=== PATIENT | female | born 1950 | race Caucasian/White ===

== ENCOUNTER 2023-08-31 03:37 | Inpatient (IN) | payer MEDICARE, OTHER, SELFPAY ==
[2023-08-31] VITALS (12 sets, daily range): BP systolic 107–158; BP diastolic 51–81; PULSE 86–111; RESP 14–22; TEMP 36.4–37.6; O2SAT 95–96; BMI 35.8
--- NOTE | ~2023-08-31 | CT_ITS ---
EXAMINATION: CT brain wo con DATE: 09/07/2023 18:07 INDICATION: Intracranial hemorrhage. TECHNIQUE: Computed tomography (CT) of the head was performed without intravenous contrast. The mA wa s adjusted according to patient size. Iterative reconstruction technique was employed. The dose-lengt h product was 681.00 mGy-cm. COMPARISON: None FINDINGS: There is no intracranial hemorrhage, acute infarction, or abnormal intracranial mass lesion . The ventricles are normal in size. The orbits are normal. The paranasal sinuses are clear. There ar e trace bilateral mastoid effusions. IMPRESSION: 1. Normal brain. Reviewed, dictated and finalized at location E. IMPRESSION: 1. Normal brain.
--- NOTE | ~2023-08-31 | CT_ITS ---
CT of the Abdomen and Pelvis: Indication: Abdominal distention, abnormal liver enzymes Technique: 2.5 mm axial scans were obtained through the abdomen and pelvis following intravenous adm inistration of 100 cc of Omnipaque 350. Dose reduction technique was used on this scan by utilizing a utomated exposure control and iterative reconstruction technique. The dose-length product (DLP) was 1 293.69 mGy-cm. Findings: Scans through the lung bases demonstrate small left pleural effusion. Liver is small and nodular in contour, compatible with cirrhotic change. No focal mass or biliary dil atation evident. The spleen, pancreas, gallbladder, adrenals and kidneys are within normal limits. N o evidence of aortic aneurysm. No lymphadenopathy. No bowel obstruction or bowel wall thickening. There is no evidence to suggest acute appendicitis. Images through the pelvis were performed. Urinary bladder unremarkable. No adnexal mass seen. Large a mount of abdominopelvic ascites present. Impression: Cirrhosis of the liver with associated large amount of abdominopelvic ascites. Small left pleural effusion. Reviewed, dictated and finalized at location M. Impression: Cirrhosis of the liver with associated large amount of abdominopelvic ascites. Small left pleural effusion.
--- NOTE | ~2023-08-31 | US_ITS ---
EXAMINATION: US venous doppler LE RT DATE: 09/05/2023 15:00 INDICATION: Right lower limb pain, swelling and mass TECHNIQUE: Grayscale ultrasound images without and with compression and Doppler ultrasound images of the right lower extremity veins were obtained. COMPARISON: None. FINDINGS: The right common femoral vein and proximal to mid femoral vein are partially compressible indicating nonocclusive thrombus. The visualized portions of right profunda (deep) femoral vein, distal femoral vein, popliteal vein, posterior tibial veins, peroneal veins, gastrocnemius vein and greater saphenou s vein outflow are patent. At the medial right thigh on longitudinal imaging there is a small triangu lar region of anechoic likely fluid at the caudal aspect of a more ovoid hypoechoic region. Appearanc e suggests possible small hematoma at a distal muscle or tendon tear with edema in the proximal retra cted portion of the muscle. IMPRESSION: 1. Nonocclusive deep venous thrombosis in the right common femoral vein and proximal to mid femoral vein. 2. Mixed hypoechoic and anechoic lesion at the medial right thigh with appearance suggesting a distal muscle or tendon tear with proximal retraction and small hematoma at the tear defect. Evaluation is relatively limited with ultrasound and could consider MRI for further evaluation as clinically indica kristopher. Reviewed, dictated and finalized at location B. IMPRESSION: 1. Nonocclusive deep venous thrombosis in the right common femoral vein and pr oximal to mid femoral vein. 2. Mixed hypoechoic and anechoic lesion at the medial right thigh with appearan ce suggesting a distal muscle or tendon tear with proximal retraction and small hematoma at the tear defect. Evaluation is relatively limited with ultrasound and could consider MRI for further evaluation as clinically indicated.
--- NOTE | ~2023-08-31 | CT_ITS ---
EXAMINATION: CT chest abdomen pelvis wo con DATE: 09/07/2023 18:07 INDICATION: Anemia. TECHNIQUE: Computed tomography (CT) of the chest, abdomen, and pelvis was performed without intraveno us contrast. Automated exposure control and iterative reconstruction technique were employed. The dos e-length product was 681.00 mGy-cm. COMPARISON: CT abdomen and pelvis 08/31/2023 FINDINGS: CHEST CT: The lungs demonstrate mild atelectasis. No pleural effusion. The heart size is normal. There are yasir nary artery calcifications. No pericardial effusion. There is mild thoracic spondylosis. ABDOMEN/PELVIS CT: The liver demonstrates surface nodularity, consistent with cirrhosis. The gallbladder, spleen, pancre as, adrenal glands, and right kidney are normal. There is a 7.2 cm cyst in left kidney. There is no u rolithiasis. There is diverticulosis of the colon without evidence of diverticulitis. There are no di lated loops of bowel. The appendix is normal. There are no pathologically enlarged lymph nodes. There is edema of the body wall and intra-abdominal fat. There is a small volume of ascites measuring simp le fluid attenuation. There is asymmetric subcutaneous edema in right thigh. Partially visualizes enl argement of the right hip adductor muscles. There is severe lumbar spondylosis. IMPRESSION: 1. New partially visualized enlargement of the right hip adductor muscles, consistent with hematoma. 2. Cirrhosis of the liver. 3. Small volume of ascites. Reviewed, dictated and finalized at location E. IMPRESSION: 1. New partially visualized enlargement of the right hip adductor muscles, cons istent with hematoma. 2. Cirrhosis of the liver. 3. Small volume of ascites.
--- NOTE | ~2023-08-31 | US_ITS ---
EXAMINATION: US paracentesis abd w/image DATE: 08/31/2023 16:02 INDICATION: Ascites. TECHNIQUE: The procedure and its risks, benefits, and alternatives were discussed with the patient. P otential risks discussed included bleeding and infection. The skin was prepped and draped in sterile fashion. 1% lidocaine was used for local anesthesia. Under ultrasound guidance, a 5 Fr catheter with trochar was advanced into the ascites in the left lower quadrant. Fluid was aspirated. The catheter w as removed, and a dressing was applied. There were no immediate complications. FINDINGS: Ultrasound images demonstrate ascites and the catheter within the fluid. IMPRESSION: 1. Successful ultrasound-guided paracentesis yielding 2900 mL of tomi-colored fluid. Reviewed, dictated and finalized at location A.
[2023-08-31 03:59] LABS: Basophils Percent Auto 0.5 % (0.2-1.2); Eosinophils Absolute Auto 0.2 K/mm3 (0-0.3); Eosinophils Percent Auto 4.4 % (0-4.4); Hematocrit 36.3 % (37.0-47.0); Hemoglobin 12.2 g/dL (12.0-15.0); Immature Platelet Fraction Pct 2.2 % (0.9-11.2); Lymphocytes Absolute Auto 1.98 K/mm3 (0.9-3.2); Lymphocytes Percent Auto 50.8 % (18.3-44.2); Mean Corpuscular HGB Conc 33.6 g/dl (32-36); Mean Corpuscular Volume 107.1 fl (80-100); Mean Platelet Volume 10.1 fl (7.4-10.4); Monocytes Absolute Auto 0.2 K/mm3 (0.1-0.6); Monocytes Percent Auto 4.9 % (2.6-8.5); Neutrophils Absolute Auto 1.5 K/mm3 (1.3-6.7); Neutrophils Percent Auto 39.4 % (45.5-73.1); Platelet Count Result 73 k/mm3 (150-375); Red Blood Count 3.39 M/mm3 (4.2-5.4); Red Cell Distribution Width 15.1 % (11.5-14.5); White Blood Count 3.9 K/mm3 (4.5-10.0)
[2023-08-31 04:07] LABS: Alanine Aminotransferase 32 U/L (6-35); Albumin Level 2.8 g/dL (3.5-5.1); Alkaline Phosphatase 332 U/L (38-126); Anion Gap 6 mmol/L (4-12); Aspartate Amino Transferase 94 U/L (14-36); Bilirubin,Total 4.9 mg/dL (0.2-1.3); Blood Urea Nitrogen 11 mg/dL (7-17); Calcium 8.4 mg/dL (8.4-10.2); Carbon Dioxide 23 mmol/L (22-30); Chloride 111 mmol/L (98-107); Estimated CRCL calculation 91 ml/min; Estimated Glomerular Filt Rate > 60; Glucose 93 mg/dL (65-110); Lipase 173 U/L (23-300); Potassium 3.8 mmol/L (3.4-5.0); Sodium 140 mmol/L (137-145)
[2023-08-31 04:11] LABS: Ovalocytes 1+; Platelet Estimate Decreased (Adequate); Schistocytes None Seen
--- NOTE | 2023-08-31 05:47 | ED.GENADULT ---
HPI - General Adult General Chief complaint: Abdominal Pain Stated complaint: abdominal pain, rib cage pain, N/V Time Seen by Provider: 08/31/23 04:50 History of Present Illness HPI narrative: this is a 73-year-old female presenting to the ED with chief complaint of abdominal discomfort. Patient says since late July she felt like she has been having abdominal bloating,, nausea vomiting lower extremity edema and dyspnea on exertion. Her notes that she has appeared more yellow. patient denies fevers chills chest pain or urinary symptoms. No history of liver disease, heavy alcohol use or drug use. Related Data Allergies Allergy/AdvReac Type Severity Reaction Status Date / Time No Known Allergies Allergy Verified 08/31/23 03:54 [facility] Family History Family History Mother Family history of congenital heart disease, Onset Age: 81 Father Cerebrovascular accident, Onset Age: 80 Social History Social History Smoking status: Former smoker Smoking end date: 04/25/87 Alcohol intake: never Exam Narrative: APPEARANCE: No apparent distress. Jaundiced Head: atraumatic. EYES: EOMI, NOSE: Atraumatic NECK: Trachea midline RESPIRATORY: No increased rate of breathing, bibasilar rales CARDIOVASCULAR: RRR, +2 pitting edema lower extremities ABDOMINAL: abdomen is distended, mild diffuse tenderness, no guarding no rebound no CVA tenderness MUSCULOSKELETAl: No obvious deformities NEURO: Alert. Moving 4/4 extremities SKIN:: Warm, dry. Normal color PSYCHIATRIC: Normal affect Course Vital Signs Vital signs: Vital Signs Temperature 98.1 F 08/31/23 03:42 Pulse Rate 111 H 08/31/23 03:42 Respiratory Rate 19 08/31/23 03:42 Blood Pressure 158/67 H 08/31/23 03:42 Pulse Oximetry 95 08/31/23 03:42 Oxygen Delivery Room Air 08/31/23 03:42 Temperature 98.1 F 08/31/23 03:42 Pulse Rate 111 H 08/31/23 03:42 Respiratory Rate 19 08/31/23 03:42 Blood Pressure 158/67 H 08/31/23 03:42 Pulse Oximetry 95 08/31/23 03:42 Oxygen Delivery Room Air 08/31/23 03:42 Medical Decision Making [facility] Narrative Medical decision making narrative: -Course: This is a 73-year-old female presenting with 2 months of abdominal distension. CT showed liver cirrhosis with significant ascites. Case was discussed with Dr. Hayden from [facility] patient will be admitted the hospital for further workup. -DDX includes but is not limited to: liver failure, neoplasm cholecystitis -Independent interpretation of studies: Labs reviewed. Significant for elevated bilirubin of 4.9, AST 94, ALT 32, alk phos is 332 CT showed liver cirrhosis with significant diabetes. -Discussion of Management/Consultants: Dr. Hayden - Thaddeus [facility]- Hospitalist -Shared decision making / Disposition:admitted Vital Signs Vital Signs: Vital Signs Temperature 98.1 F 08/31/23 03:42 Pulse Rate 111 H 08/31/23 03:42 Respiratory Rate 19 08/31/23 03:42 Blood Pressure 158/67 H 08/31/23 03:42 Pulse Oximetry 95 08/31/23 03:42 Oxygen Delivery Room Air 08/31/23 03:42 Temperature 98.1 F 08/31/23 03:42 Pulse Rate 111 H 08/31/23 03:42 Respiratory Rate 19 08/31/23 03:42 Blood Pressure 158/67 H 08/31/23 03:42 Pulse Oximetry 95 08/31/23 03:42 Oxygen Delivery Room Air 08/31/23 03:42 Lab Data 08/31/23 03:52 08/31/23 03:52 Labs: Lab Results 08/31/23 Range/Units 03:52 WBC 3.9 L (4.5-10.0) K/mm3 RBC 3.39 L (4.2-5.4) M/mm3 Hgb 12.2 (12.0-15.0) g/dL Hct 36.3 L (37.0-47.0) % MCV 107.1 H (80-100) fl MCH 36.0 H (26-34) pg MCHC 33.6 (32-36) g/dl RDW 15.1 H (11.5-14.5) % Plt Count 73 L (150-375) k/mm3 MPV 10.1 (7.4-10.4) fl Immature Gran % (Auto) 0.0 (0-0.5) % Neut % (Auto) 39.4 L (45.5-73.1) % Lymph % (Auto) 5
[2023-08-31 06:33] LABS: NT Pro B Type Natriuretic Pept 293 pg/mL (19.9-100); Troponin I < 0.012 ng/mL (0.000-0.034)
--- NOTE | 2023-08-31 07:11 | ECG_ITS ---
SEE SCANNED COPY FOR CONFIRMED REPORT MTDD
[2023-08-31 07:30] LABS: Troponin I < 0.012 ng/mL (0.000-0.034)
[2023-08-31 07:41] LABS: INR 3.8
[2023-08-31 07:42] LABS: Partial Thromboplastin Time 66.9 Seconds (22.3-36.8)
[2023-08-31 07:44] LABS: Albumin Level 2.8 g/dL (3.5-5.1)
[2023-08-31 07:59] LABS: Appearance Urine Clear (Clear); Bacteria Urine None Seen /hpf; Bilirubin Urine 1+ (Negative); Blood Urine 3+ (Negative); Color Urine Dark Yellow (Yellow); Glucose Urine UA Negative (Negative); Ketones Urine Negative (Negative); Leukocyte Esterase Ur Negative LEU/UL (Negative); Need Manual Microscopic Reviewed; Nitrate Urine Negative (Negative); Non Pathogenic Casts 0-2; Protein Urine Trace mg/dL (Negative); RBC Urine 21-50 /hpf (0-2); Specific Grav Ur 1.095 (1.001-1.035); Squamous Epithelial Cell Urine Occasional /hpf (Few); WBC Urine 0-5 /hpf (0-3); pH Urine 5.5 (5.0-9.0)
[2023-08-31 08:01] LABS: Add Urine Microscopic? YES
--- NOTE | 2023-08-31 08:55 | ADMGEN ---
This patient, Magaly Cedeno, was admitted to [facility] Surg Room 321-02. Patient/family oriented to hospital policies and general routines including ID bracelet, bed and alarms, visiting hours, pain management, procedures, bathroom and other care routines, personal items, smoking policy, room service/diet, and visiting hours. Information on how to activate the Rapid Response Team has been discussed. Patient/Family are encouraged to report perceived risks to care and to ask questions if they do not understand what they are told or what they should do.
[2023-08-31 11:36] LABS: Iron 125 ug/dL (37-170)
[2023-08-31 11:45] LABS: Percent Iron Saturation 65 % (20-50)
[2023-08-31 12:11] LABS: Hepatitis B Surface Antigen Negative (Negative)
[2023-08-31 12:17] LABS: HAV RESULT Negative (Negative); Hepatitis B Core IgM Result Negative (Negative)
--- NOTE | 2023-08-31 12:18 | PM.IMHP ---
H&P: HPI History of Present Illness Date/Time: 08/31/23 12:18 Chief Complaint: abdominal pain Narrative: Patient is a 73-year-old female with no PMH admitted for abdominal discomfort. Patient says since late July she felt like she has been having abdominal bloating, intermittent nausea/vomiting, and newer onset lower extremity edema. She denies noticing her coloration changes. Patient reports she was having trouble urinating and having bowel movements due to the swelling in her abdomen. She tried homeopathic water pill [id number] which did not help. She is a [employer] and does not take any home meds. Denies any other medical history. No history of liver disease, heavy alcohol use or drug use. Review of Systems Review of Systems: All systems reviewed & are unremarkable except as noted in HPI and below PMFSH Family History Family History Mother Family history of congenital heart disease, Onset Age: 81 Father Cerebrovascular accident, Onset Age: 80 Social History Social History Smoking status: Never smoker Alcohol intake: never Substance use: never Do You Feel Safe in your Home?: Yes Lack of Transportation: No Lack of Food: Never True Current Housing: I Do Not Have Housing Concerned About Future Housing: No Difficulty Paying Gas/Electric Bills: No Difficulty Paying for Meds: No Currently Unemployed: No Education: Associate Degree Difficulty w/ Childcare or Family Care: No Spiritual care concerns: No (Evangelical) Meds Home Medications and Allergies Allergies Allergy/AdvReac Type Severity Reaction Status Date / Time No Known Allergies Allergy Verified 08/31/23 03:54 Vital Signs Vital Signs - 24 hr 08/31/23 03:42 08/31/23 07:16 08/31/23 08:22 Temperature 98.1 F 98.7 F 97.9 F Pulse Rate 111 H 102 H 96 Respiratory Rate 19 20 22 H Blood Pressure 158/67 H 138/74 116/60 Pulse Oximetry 95 95 96 Oxygen Delivery Room Air 08/31/23 09:00 08/31/23 09:41 Temperature 97.7 F Pulse Rate 103 H 95 Respiratory Rate 16 Blood Pressure 149/81 H Pulse Oximetry 96 Oxygen Delivery Exam Narrative: GEN: Fair appearing female lying in bed, in no acute distress. Head: atraumatic. EYES: EOMI, PERRLA NECK: supple RESPIRATORY: Lungs slightly diminished at bases, otherwise clear CARDIOVASCULAR: RRR, +2 pitting edema lower extremities ABDOMINAL: abdomen is soft yet distended, non-tender this am, without guarding or rebound MUSCULOSKELETAL: No obvious deformities, normal ROM NEURO: Alert and oriented x4. No focal deficits. SKIN:: Warm, dry. Jaundiced appearance. PSYCHIATRIC: Normal affect, pleasant and cooperative H&P: Results Labs Labs: Short CBC 08/31/23 Range/Units 03:52 WBC 3.9 L (4.5-10.0) K/mm3 Hgb 12.2 (12.0-15.0) g/dL Hct 36.3 L (37.0-47.0) % Plt Count 73 L (150-375) k/mm3 BMP 08/31/23 03:52 Sodium 140 Potassium 3.8 Chloride 111 H Carbon Dioxide 23 BUN 11 Creatinine 0.50 L Glucose 93 Calcium 8.4 Cardiac Enzymes 08/31/23 08/31/23 Range/Units 03:52 07:01 Troponin I < 0.012 < 0.012 (0.000-0.034) ng/mL Liver Function 08/31/23 08/31/23 Range/Units 03:52 07:23 Total Bilirubin 4.9 H (0.2-1.3) mg/dL AST 94 H (14-36) U/L ALT 32 (6-35) U/L Alkaline Phosphatase 332 H (38-126) U/L Albumin 2.8 L 2.8 L (3.5-5.1) g/dL Urine 08/31/23 Range/Units 07:23 Urine Color Dark yellow (Yellow) Urine Appearance Clear (Clear) Urine pH 5.5 (5.0-9.0) Ur Specific [place] 1.095 H (1.001-1.035) Urine Protein Trace (Negative) mg/dL Urine Glucose (UA) Negative (Negative) mg/dL Assessment and Plan Assessment and plan (1) Cirrhosis of liver: Code(s): K74.60 - Unspecified cirrhosis of liver Status
[2023-08-31 12:28] LABS: Hepatitis C Virus Antibody Negative (Negative)
--- NOTE | 2023-08-31 15:05 | PC.NURSE ---
To ultrasound for Paracentesis per wheelchair.
--- NOTE | 2023-08-31 15:47 | PC.NURSE ---
Returned from ultrasound per wheelchair.
--- NOTE | 2023-08-31 16:57 | WPDGICN ---
Assessment and Plan Assessment and plan (1) Decompensated hepatic cirrhosis: Code(s): K72.90 - Hepatic failure, unspecified without coma; K74.60 - Unspecified cirrhosis of liver Status: Acute Assessment and Plan: new diagnosis, here with ascites just removed 2.9L, pending studies noted elevated ferritin (will check HFE gene), also blood work to rule out other chronic liver conditions, denies alcohol use also will need referral to hepatology will need at some point EGD to assess for varices MELD score 21, she is Jehova's witness and liver transplant probably won't be an option because her belief (2) Ascites: Code(s): R18.8 - Other ascites Status: Acute Assessment and Plan: s/p paracentesis, pending result (3) Coagulopathy: Code(s): D68.9 - Coagulation defect, unspecified Status: Acute Assessment and Plan: will give vit K, if still high tomorrow probably FFP (4) Thrombocytopenia: Code(s): D69.6 - Thrombocytopenia, unspecified Status: Acute Assessment and Plan: from liver disease (5) Elevated liver enzymes: Code(s): R74.8 - Abnormal levels of other serum enzymes Status: Acute Assessment and Plan: new diagnosis of cirrhosis pending work up hepatitis negative (6) Abdominal pain: Code(s): R10.9 - Unspecified abdominal pain Status: Acute (7) Nausea: Code(s): R11.0 - Nausea Status: Acute GI Consult Note Consult date/time: 08/31/23 16:57 Reason for consult: new diagnosis of cirrhosis HPI: Magaly Cedeno is a 73 year old female with no chronic medical conditions (she has not seen a doctor at least for 3 years). She came here with 3 weeks of intermittent abdominal discomfort with bloating, nausea/vomiting, and newer onset lower extremity edema.? Also noted increase abdominal girth. She is a [employer] and does not take any home meds. No history of hepatitis, alcohol use. Here found to have decompensated cirrhosis with ascites, bili 4.9, inr 3.8, platelet 70, hgb 12.5, normal renal function. Never had EGD. Denies melena. Review of Systems Constitutional: Constitutional: Denies chills Eyes: Eyes: Denies blurry vision ENT: Reports Normal hearing present Cardiovascular: Cardiovascular: Denies chest pain Respiratory: Respiratory: Denies cough Gastrointestinal: Gastrointestinal: Reports abdominal pain and Reports nausea Genitourinary: Genitourinary: Denies dysuria Musculoskeletal: Musculoskeletal: Denies neck pain Integumentary/Breasts: Skin/Breast: Denies rash Neurologic: Denies Abnormal speech present Psychiatric: Psychiatric: Denies behavioral changes [facility] Past Medical History Medical History (Updated 08/31/23 @ 17:04 by Domingo Martinez MD) Abdominal pain Ascites Coagulopathy Decompensated hepatic cirrhosis Elevated liver enzymes Nausea Thrombocytopenia Family History Family History Mother Family history of congenital heart disease, Onset Age: 81 Father Cerebrovascular accident, Onset Age: 80 Social History Social History Smoking status: Never smoker Alcohol intake: never Substance use: never Do You Feel Safe in your Home?: Yes Lack of Transportation: No Lack of Food: Never True Current Housing: I Do Not Have Housing Concerned About Future Housing: No Difficulty Paying Gas/Electric Bills: No Difficulty Paying for Meds: No Currently Unemployed: No Education: Associate Degree Difficulty w/ Childcare or Family Care: No Spiritual care concerns: No ([employer]) Meds Home Medications and Allergies Allergies Allergy/AdvReac Type Severity Reaction Status Date / Time No Known Allergies Allergy Verified 08/31/23 03:54 Vital Signs Vital Signs - 24 hr 08/31/23 03:42
[2023-08-31 17:56] LABS: Appearance Peritoneal Fluid Cloudy (Clear); Color Peritoneal Fluid Yellow (Colorless); Nucleated Cells Peritoneal Flu 15980 /uL (0-500); Source Peritoneal Fluid Peritoneal Fluid
[2023-08-31 17:57] LABS: Lymphocytes Peritoneal Fluid 3 %; Monocytes Peritoneal Fluid 15 %; Neutrophils Peritoneal Fluid 82 % (0-25)
[2023-09-01] VITALS (10 sets, daily range): BP systolic 111–134; BP diastolic 52–64; PULSE 79–114; RESP 14–18; TEMP 36.8–37.4; O2SAT 92–98
[2023-09-01 07:06] LABS: INR 2.9; Prothrombin Time 32.1 Seconds (11.1-14.7)
[2023-09-01 07:38] LABS: Basophils Percent Auto 0.4 % (0.2-1.2); Eosinophils Absolute Auto 0.1 K/mm3 (0-0.3); Eosinophils Percent Auto 1.2 % (0-4.4); Hematocrit 30.5 % (37.0-47.0); Hemoglobin 10.5 g/dL (12.0-15.0); Immature Granulocyte Absolute 0.03 K/mm3 (0.00-0.031); Immature Granulocyte Percent A 0.4 % (0-0.5); Immature Platelet Fraction Pct 3.3 % (0.9-11.2); Lymphocytes Absolute Auto 2.03 K/mm3 (0.9-3.2); Mean Corpuscular HGB Conc 34.4 g/dl (32-36); Mean Corpuscular Volume 107.4 fl (80-100); Mean Platelet Volume 10.5 fl (7.4-10.4); Monocytes Absolute Auto 1.3 K/mm3 (0.1-0.6); Monocytes Percent Auto 16.6 % (2.6-8.5); Neutrophils Absolute Auto 4.1 K/mm3 (1.3-6.7); Neutrophils Percent Auto 54.4 % (45.5-73.1); Platelet Count Result 60 k/mm3 (150-375); Red Blood Count 2.84 M/mm3 (4.2-5.4); Red Cell Distribution Width 15.3 % (11.5-14.5); White Blood Count 7.5 K/mm3 (4.5-10.0)
[2023-09-01 08:08] LABS: Alanine Aminotransferase 26 U/L (6-35); Albumin Level 2.2 g/dL (3.5-5.1); Alkaline Phosphatase 150 U/L (38-126); Anion Gap 1 mmol/L (4-12); Aspartate Amino Transferase 69 U/L (14-36); Blood Urea Nitrogen 13 mg/dL (7-17); Calcium 8.1 mg/dL (8.4-10.2); Carbon Dioxide 25 mmol/L (22-30); Chloride 107 mmol/L (98-107); Estimated CRCL calculation 100 ml/min; Estimated Glomerular Filt Rate > 60; Glucose 93 mg/dL (65-110); Potassium 3.9 mmol/L (3.4-5.0); Sodium 133 mmol/L (137-145)
[2023-09-01] MEDS: PHYTONADIONE 5 MG TABLET 10 MG PO (08:24)
[2023-09-01 08:29] LABS: Anisocytosis 1+; Macrocytosis 1+ (NORMAL); Ovalocytes 1+; Platelet Estimate Decreased (Adequate); Schistocytes None Seen
[2023-09-01] MEDS: FUROSEMIDE 40 MG TABLET PO (08:37)
[2023-09-01] MEDS: LACTULOSE 20 GM/30 ML UDC PO (08:37)
[2023-09-01] MEDS: PANTOPRAZOLE 40 MG TABLET PO (08:37)
[2023-09-01] MEDS: SPIRONOLACTONE 50 MG TABLET 100 MG PO (08:37)
[2023-09-01] MEDS: cefTRIAXone 2 GM/NS 100 ML 2 GM/100 ML BAG IVPB (10:18)
[2023-09-01] MEDS: ALBUMIN HUMAN 25% 25 GM/100 ML 100 ML IVPB ×3 (11:29→23:52)
--- NOTE | 2023-09-01 15:10 | PM.IMPN ---
Progress Note: A&P Assessment and Plan (1) Cirrhosis of liver: Code(s): K74.60 - Unspecified cirrhosis of liver Status: Acute Assessment and Plan: CTA showed liver is small and nodular in contour, compatible with cirrhotic change. No focal mass or biliary dilatation evident. The spleen, pancreas, gallbladder, adrenals and kidneys are within normal limits. No evidence of aortic aneurysm. No lymphadenopathy. No bowel obstruction or bowel wall thickening. There is no evidence to suggest acute appendicitis. Images through the pelvis were performed. Urinary bladder unremarkable. No adnexal mass seen. Large amount of abdominopelvic ascites present. Cirrhosis of the liver with associated large amount of abdominopelvic ascites. Small left pleural effusion. s/p Paracentesis yesterday with fluids studies ordered PT/PTT elevated Bili increased to 6.0 today AST/ALT 69/26 Alk-phos 332 -->150 Iron studies WNL Hepatic panel negative GI following started on Lasix and spironolactone Subjective Date/time seen: 09/01/23 15:10 Interval history: Patient sitting up in bed this morning. She reports she is feeling better since her paracentesis. Edema in her legs has improved as well. Pleural fluid pending. GI following. Started her on Lasix and spironolactone. Review of Systems Review of Systems: All systems reviewed & are unremarkable except as noted in HPI and below Exam Narrative: GEN: Fair appearing female lying in bed, in no acute distress. Head: atraumatic. EYES: EOMI, PERRLA NECK: supple RESPIRATORY: Lungs slightly diminished at bases, otherwise clear CARDIOVASCULAR: RRR, +2 pitting edema lower extremities ABDOMINAL: abdomen is soft, mildly distended, non-tender, without guarding or rebound MUSCULOSKELETAL: No obvious deformities, normal ROM. Edema improved. NEURO: Alert and oriented x4. No focal deficits. SKIN:: Warm, dry. Jaundiced appearance. PSYCHIATRIC: Normal affect, pleasant and cooperative Objective Data Vital Signs Vital Signs: Vital Signs - 24 hr 08/31/23 16:00 08/31/23 17:47 08/31/23 21:36 Temperature 99.7 F H Pulse Rate 91 88 88 Respiratory Rate 14 Blood Pressure 107/51 L Pulse Oximetry 95 Oxygen Delivery 08/31/23 20:00 08/31/23 23:28 08/31/23 20:00 Temperature 99.4 F Pulse Rate 86 Respiratory Rate Blood Pressure Pulse Oximetry Oxygen Delivery Room Air 09/01/23 00:00 09/01/23 06:00 09/01/23 04:00 Temperature 98.2 F Pulse Rate 82 114 H 79 Respiratory Rate 16 Blood Pressure 111/61 Pulse Oximetry 92 Oxygen Delivery 09/01/23 08:32 09/01/23 08:00 09/01/23 12:00 Temperature Pulse Rate 94 81 Respiratory Rate Blood Pressure 132/61 Pulse Oximetry Oxygen Delivery 09/01/23 14:00 Temperature 98.8 F Pulse Rate 83 Respiratory Rate 18 Blood Pressure 134/64 Pulse Oximetry 98 Oxygen Delivery Intake/Output Intake/Output: Intake & Output 08/29/23 08/30/23 08/31/23 09/01/23 23:59 23:59 23:59 23:59 Intake Total 0 758 Output Total 2900 Balance -2900 758 Meds/Results Medications: Active Medications Generic Name Dose Route Start Last Admin Trade Name Freq PRN Reason Stop Dose Admin Furosemide 40 mg 09/01/23 09:00 09/01/23 08:37 Furosemide 40 Mg Tablet PO 40 mg DAILY [place] Administration Ceftriaxone Sodium 2 gm in 100 mls @ 200 mls/hr 09/01/23 10:00 09/01/23 10:48 Rocephin 2 Gm/Ns 100 Ml IVPB Infused Q24H [place] Infusion Albumin Human 100 mls @ 60 mls/hr 09/01/23 12:00 09/01/23 13:10 Albutein IVPB 09/02/23 07:39 Infused Q6HR [facility] Infusion Pantoprazole Sodium 40 mg 09/01/23 09:00 09/01/23 08:37 Pantoprazole 40 Mg Tablet PO 40 mg QAM [place] Administration Phytonadione 10 mg 09/01/23 09:00 09/01/23 08:24 Phytonadione 5 Mg Tablet PO 09/04/23 08:59 10 mg DAILY [place] Administration Spironolactone 100 mg 09/01/23 09:00 09/01/23 0
--- NOTE | 2023-09-01 15:23 | WPDGIPROGNO ---
Progress Note: A&P Assessment and Plan (1) SBP (spontaneous bacterial peritonitis): Code(s): K65.2 - Spontaneous bacterial peritonitis Status: Acute Assessment and Plan: new diagnosis started on rocephin, also will get iv albumin she has normal renal function but monitor for complications (2) Decompensated hepatic cirrhosis: Code(s): K72.90 - Hepatic failure, unspecified without coma; K74.60 - Unspecified cirrhosis of liver Status: Acute Assessment and Plan: work up in progress 2g na diet, nutritional support will need to establish with hepatology, send referral to [facility] hepatology division will need EGD at some point to check for varices (3) Elevated liver enzymes: Code(s): R74.8 - Abnormal levels of other serum enzymes Status: Acute (4) Thrombocytopenia: Code(s): D69.6 - Thrombocytopenia, unspecified Status: Acute Assessment and Plan: from liver disease (5) Coagulopathy: Code(s): D68.9 - Coagulation defect, unspecified Status: Acute (6) Nausea: Code(s): R11.0 - Nausea Status: Acute Assessment and Plan: resolved (7) Abdominal pain: Code(s): R10.9 - Unspecified abdominal pain Status: Acute Assessment and Plan: improved Subjective Date/time seen: 09/01/23 15:23 Interval history: ascitic fluid c/w SBP- started on rocephin she is feeling much better, eating more and abdominal pain almost gone. Review of Systems Review of Systems: All systems reviewed & are unremarkable except as noted in HPI and below Exam Const: General: comfortable and no acute distress Other: + jaundice HENMT: Face/Nose/Sinus: Normal nares present Eyes: Sclera: scleral abnormality (icteric) Neck: Neck: supple Resp: Auscultation: clear to auscultation bilaterally Cardio: Rate: regular rate Rhythm: regular rhythm GI: Inspection: non-distended GI Palp: Yes Soft to palpation and No Tenderness to palpation present (GI) Auscultation: normal bowel sounds Other: less fluid wave Skin: Other: icteric Neuro: Speech: normal speech Motor exam (neuro): 5/5 motor strength present throughout Extrem: General: pedal edema Psych: Mental Status: mental status grossly normal Objective Data Vital Signs Vital Signs: Vital Signs - 24 hr 08/31/23 16:00 08/31/23 17:47 08/31/23 21:36 Temperature 99.7 F H Pulse Rate 91 88 88 Respiratory Rate 14 Blood Pressure 107/51 L Pulse Oximetry 95 Oxygen Delivery 08/31/23 20:00 08/31/23 23:28 08/31/23 20:00 Temperature 99.4 F Pulse Rate 86 Respiratory Rate Blood Pressure Pulse Oximetry Oxygen Delivery Room Air 09/01/23 00:00 09/01/23 06:00 09/01/23 04:00 Temperature 98.2 F Pulse Rate 82 114 H 79 Respiratory Rate 16 Blood Pressure 111/61 Pulse Oximetry 92 Oxygen Delivery 09/01/23 08:32 09/01/23 08:00 09/01/23 12:00 Temperature Pulse Rate 94 81 Respiratory Rate Blood Pressure 132/61 Pulse Oximetry Oxygen Delivery 09/01/23 14:00 Temperature 98.8 F Pulse Rate 83 Respiratory Rate 18 Blood Pressure 134/64 Pulse Oximetry 98 Oxygen Delivery Intake/Output Intake/Output: Intake & Output 08/29/23 08/30/23 08/31/23 09/01/23 23:59 23:59 23:59 23:59 Intake Total 0 758 Output Total 2900 Balance -2900 758 Meds/Results Medications: Active Medications Generic Name Dose Route Start Last Admin Trade Name Gregoria PRN Reason Stop Dose Admin Furosemide 40 mg 09/01/23 09:00 09/01/23 08:37 Furosemide 40 Mg Tablet PO 40 mg DAILY LA[facility] Administration Ceftriaxone Sodium 2 gm in 100 mls @ 200 mls/hr 09/01/23 10:00 09/01/23 10:48 Rocephin 2 Gm/Ns 100 Ml IVPB Infused Q24H [facility] Infusion Albumin Human 100 mls @ 60 mls/hr 09/01/23 12:00 09/01/23 13:10 Albutein IVPB 09/02/23 07:39 Infused Q6HR [facility] Infusion Pantoprazole Sodium 40 mg 08/31
[2023-09-02] VITALS (8 sets, daily range): BP systolic 117–146; BP diastolic 60–75; PULSE 87–99; RESP 14–20; TEMP 36.7–37.1; O2SAT 95–98
[2023-09-02] MEDS: ALBUMIN HUMAN 25% 25 GM/100 ML 100 ML IVPB (05:33)
[2023-09-02 06:06] LABS: Hematocrit 28.7 % (37.0-47.0); Hemoglobin 9.7 g/dL (12.0-15.0); Immature Platelet Fraction Pct 3.4 % (0.9-11.2); Mean Corpuscular HGB Conc 33.8 g/dl (32-36); Mean Corpuscular Hemoglobin 36.5 pg (26-34); Mean Corpuscular Volume 107.9 fl (80-100); Mean Platelet Volume 10.6 fl (7.4-10.4); Platelet Count Result 62 k/mm3 (150-375); Red Blood Count 2.66 M/mm3 (4.2-5.4); Red Cell Distribution Width 15.1 % (11.5-14.5); White Blood Count 6.1 K/mm3 (4.5-10.0)
[2023-09-02 06:15] LABS: Alanine Aminotransferase 21 U/L (6-35); Albumin Level 2.7 g/dL (3.5-5.1); Alkaline Phosphatase 95 U/L (38-126); Anion Gap 4 mmol/L (4-12); Aspartate Amino Transferase 59 U/L (14-36); Bilirubin,Total 6.5 mg/dL (0.2-1.3); Blood Urea Nitrogen 11 mg/dL (7-17); Calcium 8.8 mg/dL (8.4-10.2); Carbon Dioxide 25 mmol/L (22-30); Chloride 111 mmol/L (98-107); Estimated CRCL calculation 99 ml/min; Estimated Glomerular Filt Rate > 60; Glucose 81 mg/dL (65-110); Potassium 3.9 mmol/L (3.4-5.0); Sodium 140 mmol/L (137-145)
[2023-09-02] MEDS: cefTRIAXone 2 GM/NS 100 ML 2 GM/100 ML BAG IVPB (09:26)
[2023-09-02] MEDS: SPIRONOLACTONE 50 MG TABLET 100 MG PO (09:27)
[2023-09-02] MEDS: PHYTONADIONE 5 MG TABLET 10 MG PO (09:27)
[2023-09-02] MEDS: PANTOPRAZOLE 40 MG TABLET PO (09:27)
[2023-09-02 10:06] LABS: Basophils Percent Auto 0.8 % (0.2-1.2); Eosinophils Absolute Auto 0.2 K/mm3 (0-0.3); Eosinophils Percent Auto 3.8 % (0-4.4); Hematocrit 29.7 % (37.0-47.0); Immature Granulocyte Absolute 0.04 K/mm3 (0.00-0.031); Immature Granulocyte Percent A 0.8 % (0-0.5); Immature Platelet Fraction Pct 2.8 % (0.9-11.2); Lymphocytes Absolute Auto 2.05 K/mm3 (0.9-3.2); Lymphocytes Percent Auto 38.5 % (18.3-44.2); Mean Corpuscular HGB Conc 33.7 g/dl (32-36); Mean Corpuscular Hemoglobin 36.8 pg (26-34); Mean Corpuscular Volume 109.2 fl (80-100); Mean Platelet Volume 10.3 fl (7.4-10.4); Monocytes Absolute Auto 0.7 K/mm3 (0.1-0.6); Monocytes Percent Auto 13.5 % (2.6-8.5); Neutrophils Absolute Auto 2.3 K/mm3 (1.3-6.7); Neutrophils Percent Auto 42.6 % (45.5-73.1); Red Blood Count 2.72 M/mm3 (4.2-5.4); Red Cell Distribution Width 15.2 % (11.5-14.5); White Blood Count 5.3 K/mm3 (4.5-10.0)
[2023-09-02 10:44] LABS: Platelet Count Result 61 k/mm3 (150-375)
[2023-09-02 10:45] LABS: Hypochromasia 1+; Platelet Estimate Decreased (Adequate)
[2023-09-02 10:46] LABS: Anisocytosis 1+; Macrocytosis 1+ (NORMAL); Ovalocytes 1+; Schistocytes None Seen
--- NOTE | 2023-09-02 14:19 | PM.IMPN ---
Progress Note: A&P Assessment and Plan (1) Cirrhosis of liver: Code(s): K74.60 - Unspecified cirrhosis of liver Status: Acute Assessment and Plan: Patient has paracentesis done yesterday. Cultures are pending. Patient is clinically feeling much better. started on Lasix and spironolactone Will monitor electrolytes and CBC closely. Plan Plan is to continue current treatment monitor electrolytes and CBC. Patient was started on Lasix spironolactone Code status full. DVT prophylaxis mechanical. Subjective Date/time seen: 09/02/23 14:19 Interval history: Patient was seen during the morning rounds today. Patient is feeling slightly better. Swelling in the lower extremity is also better Decreased shortness of breath. No chest pain. No abdominal pain, nausea, no vomiting. Review of Systems Review of Systems: All systems reviewed & are unremarkable except as noted in HPI and below Exam Narrative: GEN: Fair appearing female lying in bed, in no acute distress. Head: atraumatic. EYES: EOMI, PERRLA NECK: supple RESPIRATORY: Lungs slightly diminished at bases, otherwise clear CARDIOVASCULAR: RRR, +2 pitting edema lower extremities ABDOMINAL: abdomen is soft, mildly distended, non-tender, without guarding or rebound MUSCULOSKELETAL: No obvious deformities, normal ROM. Edema improved. NEURO: Alert and oriented x4. No focal deficits. SKIN:: Warm, dry. Jaundiced appearance. PSYCHIATRIC: Normal affect, pleasant and cooperative Objective Data Vital Signs Vital Signs: Vital Signs - 24 hr 09/01/23 16:00 09/01/23 20:18 09/01/23 20:00 Temperature 37.4 C Pulse Rate 85 100 97 Respiratory Rate 14 Blood Pressure 124/52 L Pulse Oximetry 95 09/02/23 00:00 09/02/23 04:00 09/02/23 05:38 Temperature 36.8 C Pulse Rate 93 92 87 Respiratory Rate 14 Blood Pressure 117/60 Pulse Oximetry 95 09/02/23 08:55 Temperature 36.7 C Pulse Rate 87 Respiratory Rate 20 Blood Pressure 140/66 Pulse Oximetry 96 Intake/Output Intake/Output: Intake & Output 08/30/23 08/31/23 09/01/23 09/02/23 23:59 23:59 23:59 23:59 Intake Total 0 1358 340 Output Total 2900 Balance -2900 1358 340 Meds/Results Medications: Active Medications Generic Name Dose Route Start Last Admin Trade Name Gregoria PRN Reason Stop Dose Admin Furosemide 40 mg 09/01/23 09:00 09/02/23 09:25 Furosemide 40 Mg Tablet PO Not Given DAILY [place] Ceftriaxone Sodium 2 gm in 100 mls @ 200 mls/hr 09/01/23 10:00 09/02/23 09:26 Rocephin 2 Gm/Ns 100 Ml IVPB 200 mls/hr Q24H [place] Administration Pantoprazole Sodium 40 mg 09/01/23 09:00 09/02/23 09:27 Pantoprazole 40 Mg Tablet PO 40 mg QAM LAKE Administration Phytonadione 10 mg 09/01/23 09:00 09/02/23 09:27 Phytonadione 5 Mg Tablet PO 09/04/23 08:59 10 mg DAILY [place] Administration Spironolactone 50 mg 09/02/23 17:00 Spironolactone 50 Mg Tablet PO BID [facility] Radiology Results: ITS Impressions Abdomen/Pelvis CT 08/31/23 05:59 Impression: Cirrhosis of the liver with associated large amount of abdominopelvic ascites. Small left pleural effusion. Paracentesis Ultrasound 08/31/23 16:05 IMPRESSION: 1. Successful ultrasound-guided paracentesis yielding 2900 mL of tomi-colored fluid. Labs Labs: Laboratory Results - last 24 hr 09/02/23 09/02/23 05:46 09:44 WBC 6.1 5.3 RBC 2.66 L 2.72 L Hgb 9.7 L 10.0 L Hct 28.7 L 29.7 L MCV 107.9 H 109.2 H MCH 36.5 H 36.8 H MCHC 33.8 33.7 RDW 15.1 H 15.2 H Plt Count 62 L 61 L MPV 10.6 H 10.3 Immature Gran % (Auto) 0.8 H Neut % (Auto) 42.6 L Lymph % (Auto) 38.5 Tate % (Auto) 13.5 H Eos % (Auto) 3.8 Baso % (Auto) 0.8 Lymph # (Auto) 2.05 Tate # (Auto) 0.7 H Eos # (Auto) 0.2 Baso # (Auto) 0.0 Abs Immat Gran (auto) 0.04 H Absolute Neuts (auto) 2.3 Absolute Nucleated RBC 0.000 Nucleated RBC
--- NOTE | 2023-09-02 15:47 | WPDGIPROGNO ---
Progress Note: A&P Assessment and Plan (1) SBP (spontaneous bacterial peritonitis): Code(s): K65.2 - Spontaneous bacterial peritonitis Status: Acute Assessment and Plan: new diagnosis continue treatment with rocephin, tomorrow will give another dose of iv albumin normal renal function but monitor for complications (2) Decompensated hepatic cirrhosis: Code(s): K72.90 - Hepatic failure, unspecified without coma; K74.60 - Unspecified cirrhosis of liver Status: Acute Assessment and Plan: work up in progress 2g na diet, nutritional support will need to establish with hepatology, send referral to [facility] hepatology division most likely we will do colonoscopy given new onset of rectal bleeding- probably hemorrhoids- then we can also do EGD to assess if portal htn or varices (3) Elevated liver enzymes: Code(s): R74.8 - Abnormal levels of other serum enzymes Status: Acute (4) Rectal bleeding: Code(s): K62.5 - Hemorrhage of anus and rectum Status: Acute Assessment and Plan: h/h stable probably from hemorrhoids most likely colonoscopy Tuesday (5) Thrombocytopenia: Code(s): D69.6 - Thrombocytopenia, unspecified Status: Acute Assessment and Plan: from liver disease (6) Coagulopathy: Code(s): D68.9 - Coagulation defect, unspecified Status: Acute (7) Nausea: Code(s): R11.0 - Nausea Status: Acute Assessment and Plan: resolved (8) Abdominal pain: Code(s): R10.9 - Unspecified abdominal pain Status: Acute Assessment and Plan: resolved (9) Hemorrhoid: Code(s): K64.9 - Unspecified hemorrhoids Status: Acute Assessment and Plan: will start anusol supp Subjective Date/time seen: 09/02/23 15:47 Interval history: she had rectal bleeding today with anal discomfort, she had similar episodes due to hemorrhoids and she feels the same otherwise she is doing ok, no abdominal pain Review of Systems Review of Systems: All systems reviewed & are unremarkable except as noted in HPI and below Exam Const: General: comfortable and no acute distress Other: + jaundice HENMT: Face/Nose/Sinus: Normal nares present Eyes: Sclera: scleral abnormality (icteric) Neck: Neck: supple Resp: Auscultation: clear to auscultation bilaterally Cardio: Rate: regular rate Rhythm: regular rhythm GI: Inspection: non-distended GI Palp: Yes Soft to palpation and No Tenderness to palpation present (GI) Auscultation: normal bowel sounds Other: less fluid wave Skin: Other: icteric Neuro: Speech: normal speech Motor exam (neuro): 5/5 motor strength present throughout Extrem: General: pedal edema Psych: Mental Status: mental status grossly normal Objective Data Vital Signs Vital Signs: Vital Signs - 24 hr 09/01/23 16:00 09/01/23 20:18 09/01/23 20:00 Temperature 99.3 F Pulse Rate 85 100 97 Respiratory Rate 14 Blood Pressure 124/52 L Pulse Oximetry 95 09/02/23 00:00 09/02/23 04:00 09/02/23 05:38 Temperature 98.2 F Pulse Rate 93 92 87 Respiratory Rate 14 Blood Pressure 117/60 Pulse Oximetry 95 09/02/23 08:55 09/02/23 14:00 Temperature 98.0 F 98.4 F Pulse Rate 87 90 Respiratory Rate 20 20 Blood Pressure 140/66 146/75 H Pulse Oximetry 96 98 Intake/Output Intake/Output: Intake & Output 08/30/23 08/31/23 09/01/23 09/02/23 23:59 23:59 23:59 23:59 Intake Total 0 1358 340 Output Total 2900 Balance -2900 1358 340 Meds/Results Medications: Active Medications Generic Name Dose Route Start Last Admin Trade Name Freq PRN Reason Stop Dose Admin Furosemide 40 mg 09/01/23 09:00 09/02/23 09:25 Furosemide 40 Mg Tablet PO Not Given DAILY [facility] Ceftriaxone Sodium 2 gm in 100 mls @ 200 mls/hr 09/01/23 10:00 09/02/23 09:26 Rocephin 2 Gm/Ns 100 Ml IVPB 200 mls/hr Q24H [facility] Administration Pantoprazole S
[2023-09-02] MEDS: SPIRONOLACTONE 50 MG TABLET PO (16:05)
[2023-09-02 16:19] LABS: Ceruloplasmin 23 mg/dL (18-53)
[2023-09-02] MEDS: HYDROCORTISONE ACETATE 25 MG SUPPOSITORY RECTAL (20:51)
[2023-09-03] VITALS: PULSE 84
[2023-09-03 04:00] VITALS: PULSE 78
[2023-09-03 06:00] VITALS: BP 130/68; PULSE 85; RESP 16; TEMP 36.8; O2SAT 98
[2023-09-03 06:40] LABS: Hematocrit 30.8 % (37.0-47.0); Hemoglobin 10.3 g/dL (12.0-15.0); Immature Platelet Fraction Pct 3.4 % (0.9-11.2); Mean Corpuscular HGB Conc 33.4 g/dl (32-36); Mean Corpuscular Volume 107.7 fl (80-100); Mean Platelet Volume 10.3 fl (7.4-10.4); Platelet Count Result 69 k/mm3 (150-375); Red Blood Count 2.86 M/mm3 (4.2-5.4); Red Cell Distribution Width 14.8 % (11.5-14.5); White Blood Count 5.9 K/mm3 (4.5-10.0)
[2023-09-03 06:46] LABS: Alanine Aminotransferase 24 U/L (6-35); Albumin Level 2.8 g/dL (3.5-5.1); Alkaline Phosphatase 100 U/L (38-126); Anion Gap 7 mmol/L (4-12); Aspartate Amino Transferase 67 U/L (14-36); Blood Urea Nitrogen 9 mg/dL (7-17); Calcium 8.7 mg/dL (8.4-10.2); Carbon Dioxide 22 mmol/L (22-30); Chloride 110 mmol/L (98-107); Estimated CRCL calculation 99 ml/min; Estimated Glomerular Filt Rate > 60; Glucose 88 mg/dL (65-110); Potassium 3.6 mmol/L (3.4-5.0); Sodium 139 mmol/L (137-145)
[2023-09-03] MEDS: HYDROCORTISONE ACETATE 25 MG SUPPOSITORY RECTAL ×2 (08:22→21:50)
[2023-09-03] MEDS: cefTRIAXone 2 GM/NS 100 ML 2 GM/100 ML BAG IVPB (08:22)
[2023-09-03] MEDS: PHYTONADIONE 5 MG TABLET 10 MG PO (08:22)
[2023-09-03] MEDS: PANTOPRAZOLE 40 MG TABLET PO (08:22)
[2023-09-03] MEDS: SPIRONOLACTONE 50 MG TABLET PO ×2 (08:22→17:25)
[2023-09-03] MEDS: FUROSEMIDE 40 MG TABLET PO (08:22)
--- NOTE | 2023-09-03 09:55 | PM.IMPN ---
Progress Note: A&P Assessment and Plan (1) Cirrhosis of liver: Code(s): K74.60 - Unspecified cirrhosis of liver Status: Acute Assessment and Plan: - GI is following -on Lasix and spironolactone - Will monitor electrolytes and CBC closely - 2g na diet, nutritional support referral to [facility] hepatology division were sent per GI note prob colonoscopy given new onset of rectal bleeding- probably hemorrhoids- EGD to assess if portal htn or varices (2) Hemorrhoid: Code(s): K64.9 - Unspecified hemorrhoids Status: Acute Assessment and Plan: -possible colonoscopy for tuesday (3) SBP (spontaneous bacterial peritonitis): Code(s): K65.2 - Spontaneous bacterial peritonitis Status: Acute Assessment and Plan: -Following with GItreatment with rocephin, tomorrow will give another dose of iv albumin normal renal function but monitor for complications (4) Elevated liver enzymes: Code(s): R74.8 - Abnormal levels of other serum enzymes Status: Acute (5) Rectal bleeding: Code(s): K62.5 - Hemorrhage of anus and rectum Status: Acute Assessment and Plan: -Hg is stable - pt is a Mandaen and does not take any home meds or blood product Plan Plan is to continue current treatment monitor electrolytes and CBC. Patient was started on Lasix spironolactone Code status full. DVT prophylaxis mechanical. Time Spent With Patient Time with patient: 15 - 25 minutes Subjective Date/time seen: 09/03/23 09:55 Interval history: Patient is a 73-year-old female with no PMH admitted for abdominal discomfort since july she felt like she has been having abdominal bloating, intermittent nausea/vomiting, and newer onset lower extremity edema.? she was having trouble urinating and having bowel movements due to the swelling in her abdomen.? She is a Mandaen and does not take any home meds.? Denies any other medical history. No history of liver disease, heavy alcohol use or drug use. she had rectal bleeding 09/01 with anal discomfort, she had similar episodes due to hemorrhoids and she feels the same -seen and examined today, 09/02. will get another dose of albumin per GI recommendation and continue Rocephin for bacterial peritonitis. Referral was sent to [facility] hepatology- she will need a f/u there. Review of Systems Review of Systems: All systems reviewed & are unremarkable except as noted in HPI and below Cardiovascular: Cardiovascular: Denies chest pain and Denies diaphoresis Respiratory: Respiratory: Denies chest congestion and Denies cough Gastrointestinal: Gastrointestinal: Denies abdominal pain Neurologic: Denies Abnormal speech present and Denies abnormal gait Exam Narrative: GEN: Fair appearing female lying in bed, in no acute distress. Head: atraumatic. EYES: EOMI, PERRLA NECK: supple RESPIRATORY: Lungs slightly diminished at bases, otherwise clear CARDIOVASCULAR: RRR, +2 pitting edema lower extremities ABDOMINAL: abdomen is soft, mildly distended, non-tender, without guarding or rebound MUSCULOSKELETAL: No obvious deformities, normal ROM. Edema improved. NEURO: Alert and oriented x4. No focal deficits. SKIN:: Warm, dry. Jaundiced appearance. PSYCHIATRIC: Normal affect, pleasant and cooperative Const: General: comfortable Cardio: Rate: regular rate Rhythm: regular rhythm Neuro: General: gait normal Speech: normal speech Extrem: General: normal to inspection Psych: Affect: normal affect Objective Data Vital Signs Vital Signs: Vital Signs - 24 hr 09/02/23 14:00 09/02/23 16:00 09/02/23 22:00 Temperature 98.4 F 98.8 F Pulse Rate 90 99 88 Respiratory Rate 20 16 Blood Pressure 146/75 H 134/60 Pulse Oximetry 98 95 09/02/23 20:00 09/03/23 00:00 09/03/23 06:00 Temperature 98.3 F Pulse Rate 89 84 85 Respiratory Rate 16 Blood Pressure 130/68 Pulse Oximetry 98 Intake/Output Intake/Output
[2023-09-03 14:00] VITALS: BP 150/77; PULSE 85; RESP 18; TEMP 36.6; O2SAT 98
--- NOTE | 2023-09-03 14:05 | WPDGIPROGNO ---
Progress Note: A&P Assessment and Plan (1) SBP (spontaneous bacterial peritonitis): Code(s): K65.2 - Spontaneous bacterial peritonitis Status: Acute Assessment and Plan: new diagnosis continue treatment with rocephin, today will give again iv albumin (2) Decompensated hepatic cirrhosis: Code(s): K72.90 - Hepatic failure, unspecified without coma; K74.60 - Unspecified cirrhosis of liver Status: Acute Assessment and Plan: work up in progress 2g na diet, nutritional support will need to establish with hepatology, send referral to [facility] hepatology division but she is [employer]'s witness (does not accept blood transfusion or transplant) EGD to assess if portal htn or varices (3) Elevated liver enzymes: Code(s): R74.8 - Abnormal levels of other serum enzymes Status: Acute Assessment and Plan: from decompensated cirrhosis bili still high 7 (4) Rectal bleeding: Code(s): K62.5 - Hemorrhage of anus and rectum Status: Acute Assessment and Plan: h/h stable probably from hemorrhoids colonoscopy Tuesday no more bleeding after started using anusol supp (5) Thrombocytopenia: Code(s): D69.6 - Thrombocytopenia, unspecified Status: Acute Assessment and Plan: from liver disease, stable (6) Coagulopathy: Code(s): D68.9 - Coagulation defect, unspecified Status: Acute Assessment and Plan: on vit K can not give FFP (she is Jehova's witness) (7) Abdominal pain: Code(s): R10.9 - Unspecified abdominal pain Status: Acute Assessment and Plan: resolved (8) Hemorrhoid: Code(s): K64.9 - Unspecified hemorrhoids Status: Acute Assessment and Plan: on anusol supp Subjective Date/time seen: 09/03/23 14:05 Interval history: no more rectal bleeding, doing ok, no abdominal pain Review of Systems Review of Systems: All systems reviewed & are unremarkable except as noted in HPI and below Exam Const: General: comfortable and no acute distress Other: + jaundice HENMT: Face/Nose/Sinus: Normal nares present Eyes: Sclera: scleral abnormality (icteric) Neck: Neck: supple Resp: Auscultation: clear to auscultation bilaterally Cardio: Rate: regular rate Rhythm: regular rhythm GI: Inspection: non-distended GI Palp: Yes Soft to palpation and No Tenderness to palpation present (GI) Auscultation: normal bowel sounds Other: less fluid wave Skin: Other: icteric Neuro: Speech: normal speech Motor exam (neuro): 5/5 motor strength present throughout Extrem: General: pedal edema Psych: Mental Status: mental status grossly normal Objective Data Vital Signs Vital Signs: Vital Signs - 24 hr 09/02/23 16:00 09/02/23 22:00 09/02/23 20:00 Temperature 98.8 F Pulse Rate 99 88 89 Respiratory Rate 16 Blood Pressure 134/60 Pulse Oximetry 95 09/03/23 00:00 09/03/23 06:00 Temperature 98.3 F Pulse Rate 84 85 Respiratory Rate 16 Blood Pressure 130/68 Pulse Oximetry 98 Intake/Output Intake/Output: Intake & Output 08/31/23 09/01/23 09/02/23 09/03/23 23:59 23:59 23:59 23:59 Intake Total 0 1358 790 0 Output Total 2900 Balance -2900 1358 790 0 Meds/Results Medications: Active Medications Generic Name Dose Route Start Last Admin Trade Name Cedricq PRN Reason Stop Dose Admin Furosemide 40 mg 09/01/23 09:00 09/03/23 08:22 Furosemide 40 Mg Tablet PO 40 mg DAILY [place] Administration Hydrocortisone Acetate 25 mg 09/02/23 21:00 09/03/23 08:22 Hydrocortisone Acetate 25 Mg Suppository RECTAL 25 mg Q12HR [facility] Administration Ceftriaxone Sodium 2 gm in 100 mls @ 200 mls/hr 09/01/23 10:00 09/03/23 08:22 Rocephin 2 Gm/Ns 100 Ml IVPB 200 mls/hr Q24H [facility] Administration Albumin Human 100 mls @ 60 mls/hr 09/03/23 18:00 Albutein IVPB 09/04/23 13:39 Q6HR [facility] Pantoprazole Sodium 40 mg 09/01/23 09:00
[2023-09-03] MEDS: ALBUMIN HUMAN 25% 25 GM/100 ML 100 ML IVPB (17:25)
[2023-09-03 20:20] VITALS: PULSE 93
[2023-09-03 22:00] VITALS: BP 126/66; PULSE 92; RESP 16; TEMP 37.3; O2SAT 95
[2023-09-04] VITALS (8 sets, daily range): BP systolic 128–140; BP diastolic 58–77; PULSE 76–95; RESP 16–18; TEMP 36.9–37.2; O2SAT 92–96
[2023-09-04] MEDS: ALBUMIN HUMAN 25% 25 GM/100 ML 100 ML IVPB ×3 (00:25→12:24)
[2023-09-04 06:10] LABS: Prothrombin Time 54.6 Seconds (11.1-14.7)
[2023-09-04 06:19] LABS: Alanine Aminotransferase 19 U/L (6-35); Alkaline Phosphatase 95 U/L (38-126); Anion Gap 7 mmol/L (4-12); Aspartate Amino Transferase 60 U/L (14-36); Bilirubin,Total 5.9 mg/dL (0.2-1.3); Blood Urea Nitrogen 9 mg/dL (7-17); Calcium 8.7 mg/dL (8.4-10.2); Carbon Dioxide 25 mmol/L (22-30); Chloride 109 mmol/L (98-107); Estimated CRCL calculation 121 ml/min; Estimated Glomerular Filt Rate > 60; Glucose 89 mg/dL (65-110); Potassium 3.4 mmol/L (3.4-5.0); Sodium 141 mmol/L (137-145)
[2023-09-04 07:01] LABS: INR 5.5
--- NOTE | 2023-09-04 07:05 | PM.IMPN ---
Progress Note: A&P Assessment and Plan (1) Cirrhosis of liver: Code(s): K74.60 - Unspecified cirrhosis of liver Status: Acute Assessment and Plan: - GI is following -on Lasix and spironolactone - Will monitor electrolytes and CBC closely - 2g na diet, nutritional support referral to [facility] hepatology division were sent per GI note prob colonoscopy given new onset of rectal bleeding- probably hemorrhoids- EGD to assess if portal htn or varices (2) Hemorrhoid: Code(s): K64.9 - Unspecified hemorrhoids Status: Acute Assessment and Plan: -possible colonoscopy for tuesday - no more rectal bleeding since started on suppositories (3) SBP (spontaneous bacterial peritonitis): Code(s): K65.2 - Spontaneous bacterial peritonitis Status: Acute Assessment and Plan: -Following with GI treatment with rocephin, tomorrow will give another dose of iv albumin normal renal function but monitor for complications (4) Elevated liver enzymes: Code(s): R74.8 - Abnormal levels of other serum enzymes Status: Acute (5) Rectal bleeding: Code(s): K62.5 - Hemorrhage of anus and rectum Status: Acute Assessment and Plan: -Hg is stable- 10.3 today - pt is a Rastafarian and does not take any home meds or blood product (6) Coagulopathy: Code(s): D68.9 - Coagulation defect, unspecified Status: Acute Assessment and Plan: - inr is reported today 5.5 - pt received 3 doses of vit k already- cannot take FFP ([employer]ahova's witness) - discussed with DR Martinez- will order more vit K and consult Hematology - GI is following Plan Plan is to continue current treatment monitor electrolytes and CBC. Patient was started on Lasix spironolactone Code status full. DVT prophylaxis mechanical. Time Spent With Patient Time with patient: 15 - 25 minutes Subjective Date/time seen: 09/04/23 07:05 Interval history: Patient is a 73-year-old female with no PMH admitted for abdominal discomfort since july she felt like she has been having abdominal bloating, intermittent nausea/vomiting, and newer onset lower extremity edema.? she was having trouble urinating and having bowel movements due to the swelling in her abdomen.? She is a Rastafarian and does not take any home meds.? Denies any other medical history. No history of liver disease, heavy alcohol use or drug use. she had rectal bleeding 09/01 with anal discomfort, she had similar episodes due to hemorrhoids and she feels the same -seen and examined today, 09/02. will get another dose of albumin per GI recommendation and continue Rocephin for bacterial peritonitis. Referral was sent to [facility] hepatology- she will need a f/u there. 09/03 INR, she got 3 doses of vi K cannot get FFP. discussed with DR James diallo to give vit K and cosult hematology. pt is alert, oriented, in no distress, reports no active bleeding Review of Systems Review of Systems: All systems reviewed & are unremarkable except as noted in HPI and below Cardiovascular: Cardiovascular: Denies chest pain and Denies diaphoresis Respiratory: Respiratory: Denies chest congestion and Denies cough Gastrointestinal: Gastrointestinal: Denies abdominal pain Musculoskeletal: Musculoskeletal: Denies abnormal gait Neurologic: Denies Abnormal speech present and Denies abnormal gait Exam Narrative: GEN: Fair appearing female lying in bed, in no acute distress. Head: atraumatic. EYES: EOMI, PERRLA NECK: supple RESPIRATORY: Lungs slightly diminished at bases, otherwise clear CARDIOVASCULAR: RRR, +2 pitting edema lower extremities ABDOMINAL: abdomen is soft, mildly distended, non-tender, without guarding or rebound MUSCULOSKELETAL: No obvious deformities, normal ROM. Edema improved. NEURO: Alert and oriented x4. No focal deficits. SKIN:: Warm, dry. Jaundiced appearance. PSYCHIATRIC: Normal affect, pleasant and cooperative Cons
[2023-09-04] MEDS: PHYTONADIONE 5 MG TABLET 10 MG PO (09:20)
[2023-09-04] MEDS: HYDROCORTISONE ACETATE 25 MG SUPPOSITORY RECTAL ×2 (09:21→20:37)
[2023-09-04] MEDS: PANTOPRAZOLE 40 MG TABLET PO (09:21)
[2023-09-04] MEDS: FUROSEMIDE 40 MG TABLET PO (09:21)
[2023-09-04] MEDS: cefTRIAXone 2 GM/NS 100 ML 2 GM/100 ML BAG IVPB (09:21)
[2023-09-04] MEDS: SPIRONOLACTONE 50 MG TABLET PO ×2 (09:21→16:50)
--- NOTE | 2023-09-04 13:16 | WPDGIPROGNO ---
Progress Note: A&P Assessment and Plan (1) SBP (spontaneous bacterial peritonitis): Code(s): K65.2 - Spontaneous bacterial peritonitis Status: Acute Assessment and Plan: she is receiving rocephin and also iv albumin (2) Decompensated hepatic cirrhosis: Code(s): K72.90 - Hepatic failure, unspecified without coma; K74.60 - Unspecified cirrhosis of liver Status: Acute Assessment and Plan: work up in progress meld score 23 mostly due to high inr and bili (normal renal function) 2g na diet, nutritional support will need to establish with hepatology, already sent referral to [facility] hepatology division but she is Jehova's witness (does not accept blood transfusion or transplant) EGD in near future to assess if portal htn or varices (3) Elevated liver enzymes: Code(s): R74.8 - Abnormal levels of other serum enzymes Status: Acute Assessment and Plan: from decompensated cirrhosis (4) Rectal bleeding: Code(s): K62.5 - Hemorrhage of anus and rectum Status: Acute Assessment and Plan: h/h stable probably from hemorrhoids no more bleeding after started using anusol supp colonoscopy when inr improves (5) Thrombocytopenia: Code(s): D69.6 - Thrombocytopenia, unspecified Status: Acute Assessment and Plan: from liver disease, stable (6) Coagulopathy: Code(s): D68.9 - Coagulation defect, unspecified Status: Acute Assessment and Plan: this is from cirrhosis mostly on vit K can not give FFP (she is Jehova's witness) today inr even higher- will consult hematology (7) Abdominal pain: Code(s): R10.9 - Unspecified abdominal pain Status: Acute Assessment and Plan: resolved (8) Hemorrhoid: Code(s): K64.9 - Unspecified hemorrhoids Status: Acute Assessment and Plan: on anusol supp Subjective Date/time seen: 09/04/23 13:16 Interval history: no new events, denies any more rectal bleeding Review of Systems Review of Systems: All systems reviewed & are unremarkable except as noted in HPI and below Exam Const: General: comfortable and no acute distress Other: + jaundice HENMT: Face/Nose/Sinus: Normal nares present Eyes: Sclera: scleral abnormality (icteric) Neck: Neck: supple Resp: Auscultation: clear to auscultation bilaterally Cardio: Rate: regular rate Rhythm: regular rhythm GI: Inspection: non-distended GI Palp: Yes Soft to palpation and No Tenderness to palpation present (GI) Auscultation: normal bowel sounds Skin: Other: icteric, few bruises from lab drawn Neuro: Speech: normal speech Motor exam (neuro): 5/5 motor strength present throughout Extrem: General: pedal edema Psych: Mental Status: mental status grossly normal Objective Data Vital Signs Vital Signs: Vital Signs - 24 hr 09/03/23 14:00 09/03/23 22:00 09/03/23 20:20 Temperature 97.9 F 99.1 F Pulse Rate 85 92 93 Respiratory Rate 18 16 Blood Pressure 150/77 H 126/66 Pulse Oximetry 98 95 Oxygen Delivery 09/04/23 00:00 09/04/23 04:00 09/04/23 06:00 Temperature 98.9 F Pulse Rate 84 76 90 Respiratory Rate 16 Blood Pressure 128/71 Pulse Oximetry 96 Oxygen Delivery 09/04/23 08:16 09/04/23 09:21 Temperature Pulse Rate Respiratory Rate Blood Pressure Pulse Oximetry 94 Oxygen Delivery Room Air Room Air Intake/Output Intake/Output: Intake & Output 09/01/23 09/02/23 09/03/23 09/04/23 23:59 23:59 23:59 23:59 Intake Total 0243 504 9531 680 Balance 2803 726 2834 680 Meds/Results Medications: Active Medications Generic Name Dose Route Start Last Admin Trade Name Freq PRN Reason Stop Dose Admin Furosemide 40 mg 09/01/23 09:00 09/04/23 09:21 Furosemide 40 Mg Tablet PO 40 mg DAILY [place] Administration Hydrocortisone Acetate 25 mg 09/02/23 21:00 09/04/23 09:21 Hydrocortisone Acetate 25 Mg Suppository RECTAL 25 m
--- NOTE | 2023-09-04 18:30 | PC.NURSE ---
Pt is A&O4 female that is compliant with care. Pt participates and contribute in plan of care. Pt denies any pain, but does report soreness in right thigh muscle. Pt expresses no needs at this time. Pt procedure has been put on hold due to elevated PT and INR. Pt will continue to be monitored for any changes is status.
[2023-09-05 05:33] VITALS: BP 132/60; PULSE 79; RESP 16; TEMP 36.8; O2SAT 97
[2023-09-05 08:00] VITALS: PULSE 71
[2023-09-05] MEDS: PHYTONADIONE 5 MG TABLET 10 MG PO (09:15)
[2023-09-05] MEDS: PANTOPRAZOLE 40 MG TABLET PO (09:15)
[2023-09-05] MEDS: FUROSEMIDE 40 MG TABLET PO (09:15)
[2023-09-05] MEDS: HYDROCORTISONE ACETATE 25 MG SUPPOSITORY RECTAL ×2 (09:15→21:24)
[2023-09-05] MEDS: SPIRONOLACTONE 50 MG TABLET PO ×2 (09:15→16:51)
[2023-09-05] MEDS: LIDOCAINE 5% PATCH 1 PATCH TRANSDERM (09:17)
--- NOTE | 2023-09-05 09:29 | PM.IMPN ---
Progress Note: A&P Assessment and Plan (1) Cirrhosis of liver: Code(s): K74.60 - Unspecified cirrhosis of liver Status: Acute Assessment and Plan: - GI is following -on Lasix and spironolactone - Will monitor electrolytes and CBC closely - 2g na diet, nutritional support referral to [facility] hepatology division were sent per GI note colonoscopy / EGD postponed - per gi: I recommend transfer to hepatology service because worsening coagulation and decompensated cirrhosis -called [facility] to initiate transfer (2) Hemorrhoid: Code(s): K64.9 - Unspecified hemorrhoids Status: Acute Assessment and Plan: -possible colonoscopy for tuesday - no more rectal bleeding since started on suppositories (3) SBP (spontaneous bacterial peritonitis): Code(s): K65.2 - Spontaneous bacterial peritonitis Status: Acute Assessment and Plan: -Following with GI treatment with rocephin, tomorrow will give another dose of iv albumin normal renal function but monitor for complications - cetriaxone - will do 7 days course (4) Elevated liver enzymes: Code(s): R74.8 - Abnormal levels of other serum enzymes Status: Acute (5) Rectal bleeding: Code(s): K62.5 - Hemorrhage of anus and rectum Status: Acute Assessment and Plan: -Hg is stable- 10.3 today - pt is a [employer] and does not take any home meds or blood product (6) Coagulopathy: Code(s): D68.9 - Coagulation defect, unspecified Status: Acute Assessment and Plan: - inr is reported today 5.5 - pt received 3 doses of vit k already- cannot take FFP (Jahova's witness) - discussed with DR Martinez- will order more vit K and consult Hematology - GI is following - hematology consulted notes reviewed: anemia- There is a decrease in hemoglobin. Patient is dealing with bleeding hemorrhoids, but likely not the cause of her hemoglobin drop. I will draw iron studies and B12 to re-evaluate. She may need iron infusion vs PO supplements since no blood products can be given. Elevated MCV is due to her liver disease. Elevated INR- INR 5.6 PT 56. Due to liver damage. Pt is on oral Vit K daily. No FFP can be given to due to [employer] status. I have explained the mechanism of FFP and the risks of untreated elevation in INR. Pt and decline blood products. I will give 5mg IV K. I will order q8 hour PT/INR to be drawn (7) Thrombocytopenia: Code(s): D69.6 - Thrombocytopenia, unspecified Status: Acute Assessment and Plan: - was seen per hematology today - notes reviewed: Thrombocytopenia- CT scan shows shows cirrhosis of the liver with associated large amount of abdominopelvic ascites, and small left pleural effusion. She is a Jehovah witness and declines all blood products. Patient platelet today are stable at 63,000. This is due to her ongoing liver cirrhosis and possibility of nutritional deficiencies. I will order plt antibody, iron studies and B12 as hgb continues to drop as well Plan Plan is to continue current treatment monitor electrolytes and CBC. Patient was started on Lasix spironolactone Code status full. DVT prophylaxis mechanical. Subjective Date/time seen: 09/05/23 09:29 Interval history: no new events, denies any more rectal bleeding colonoscopy today cancelled INR high 5.6 hematology consult Review of Systems Review of Systems: All systems reviewed & are unremarkable except as noted in HPI and below Cardiovascular: Cardiovascular: Denies chest pain and Denies diaphoresis Respiratory: Respiratory: Denies chest congestion and Denies cough Gastrointestinal: Gastrointestinal: Denies abdominal pain Musculoskeletal: Musculoskeletal: Denies abnormal gait Neurologic: Denies Abnormal speech present and Denies abnormal gait Exam Narrative: GEN: Fair appearing female lying in bed, in no acute distress. Head: atraumatic. EYES: EOM
[2023-09-05 10:11] LABS: Hematocrit 22.7 % (37.0-47.0); Hemoglobin 7.4 g/dL (12.0-15.0); Immature Platelet Fraction Pct 5.4 % (0.9-11.2); Mean Corpuscular HGB Conc 32.6 g/dl (32-36); Mean Corpuscular Hemoglobin 36.1 pg (26-34); Mean Corpuscular Volume 110.7 fl (80-100); Mean Platelet Volume 10.6 fl (7.4-10.4); Platelet Count Result 63 k/mm3 (150-375); Red Blood Count 2.05 M/mm3 (4.2-5.4); Red Cell Distribution Width 15.5 % (11.5-14.5); White Blood Count 6.7 K/mm3 (4.5-10.0)
[2023-09-05 10:20] LABS: Prothrombin Time 56.6 Seconds (11.1-14.7)
--- NOTE | 2023-09-05 10:24 | PDONCCN ---
HPI - Date of Consult Date/Time: 09/05/23 17:34 <KrupaAsherSindy - 09/05/23 17:37> 09/05/23 10:24 <Shraddha Serrato - 09/05/23 10:25> Requesting Physician: Dariana Travis DO <KrupaAsehryordy Cornejo - 09/05/23 17:37> Dariana Travis DO <Shraddha Serrato - 09/05/23 10:25> Primary Care Provider: BIOLOGICAL SCIENCES PROFESSOR PHYSICIAN <KrupaAsheryordy Cornejo - 09/05/23 17:37> BIOLOGICAL SCIENCES PROFESSOR PHYSICIAN <Shraddha Serrato - 09/05/23 10:25> - Consult Narrative Reason for consult: Thrombocytopenia, elevated INR <AmaShraddha 09/05/23 10:25> Narrative: Magaly Cedeno is a 73 year old female <KrupaAsher Clemente - 09/05/23 17:37> Magaly Cedeno is a 73 year old female with no past medical history has been admitted for increased abd pain and bloating with n/v. This has been ongoing for a couple of weeks. She has noticed increased weight gain as well and puffiness in her arms and legs. CT scan shows cirrhosis of the liver with associated large amount of abdominopelvic ascites, and small left pleural effusion. She is now s/p paracentesis as well for fluid removal and is feeling much better. She denies any chronic Tylenol use or alcohol use. She reports taking frequent Excedrin in the past but only as it showed on the bottle. She is having bleeding due to hemorrhoids and is using suppositories. She denies any family history of cancer or personal history. Labs today are notable for Hgb 7.4, Hct 22, MCV 110.7, Plt 63,000. INR 5.6 PT 56 . She is s/p 3 units of Vit K. She is a Jehovah witness and declines all blood products. <Shraddha Serrato 09/05/23 11:37> Review of Systems - Review of Systems All systems reviewed & are unremarkable except as noted in HPI and bel <Shraddha Serrato 09/05/23 10:36> - Neurologic Reports hearing normal, Denies abnormal speech, Denies abnormal gait, Denies behavioral changes <HarshilnasrinEmileShraddha - 09/05/23 10:25> [facility] Medical History: Medical History (Last Updated 09/02/23 @ 15:49 by Domingo Martinez MD) Abdominal pain Ascites Coagulopathy Decompensated hepatic cirrhosis Elevated liver enzymes Hemorrhoid Nausea Rectal bleeding SBP (spontaneous bacterial peritonitis) Thrombocytopenia <Asher GentileSindy - 09/05/23 17:37> Medical History (Last Updated 09/02/23 @ 15:49 by Domingo Martinez MD) Abdominal pain Ascites Coagulopathy Decompensated hepatic cirrhosis Elevated liver enzymes Hemorrhoid Nausea Rectal bleeding SBP (spontaneous bacterial peritonitis) Thrombocytopenia <HarshilnasrinShraddha - 09/05/23 10:25> Family History: Family History (Last Reviewed 08/31/23 @ 16:15 by Kimi Jackson APRN) Mother Family history of congenital heart disease, Onset Age: 81 Father Cerebrovascular accident, Onset Age: 80 <KrupaAsherSindy - 09/05/23 17:37> Family History (Last Reviewed 08/31/23 @ 16:15 by Kimi Jackson APRN) Mother Family history of congenital heart disease, Onset Age: 81 Father Cerebrovascular accident, Onset Age: 80 <AmaShraddha - 09/05/23 10:25> - Social History Social History: Social History (Last Reviewed 08/31/23 @ 16:15 by Kimi Jackson APRN) Alcohol Use: Alcohol intake: never Substance Use: Substance use: never Others: Spiritual care concerns: No Spiritual care concerns comment: Nondenominational Smoking Status: Smoking status: Never smoker Social Determinants of Health: Do You Feel Safe in your Home?: Yes Has the Lack of Transportation Kept You From Medical Appointments or From Getting Medications?: No Within the Past 12 Months, Were You Worried Whether Your Food Would Run Out Before You Got Money to Buy More?: Never True What is Your Housing Situation Today?: I Do Not Have Housing Are You Worried That in the Next 2 Months, You May Not Have Your Own Housing to L
[2023-09-05 10:33] LABS: INR 5.6
[2023-09-05] MEDS: cefTRIAXone 2 GM/NS 100 ML 2 GM/100 ML BAG IVPB (10:35)
[2023-09-05 11:56] LABS: RBC Peritoneal Fluid 4000 /uL (0-10000)
--- NOTE | 2023-09-05 12:09 | PC.NURSE ---
This nurse let Brittany know that lab called this nurse about updated paracentesis results. Results are RBC's at 4,000.
[2023-09-05] MEDS: PHYTONADIONE ADULT INJ 5 MG in DEXTROSE 5% IN WATER 50 ML 100 MG IVPB (12:30)
[2023-09-05 13:14] LABS: Iron 70 ug/dL (37-170)
[2023-09-05 13:23] LABS: Percent Iron Saturation 52 % (20-50)
--- NOTE | 2023-09-05 13:25 | WPDGIPROGNO ---
Progress Note: A&P Assessment and Plan (1) Coagulopathy: Code(s): D68.9 - Coagulation defect, unspecified Status: Acute Assessment and Plan: this is from cirrhosis mostly will give now IV vit K, can not give FFP (she is Jehova's witness) hematology on board (also thrombocytopenia from liver disease)- unfortunately if she would have bleeding we won't be able to treat it with blood products I recommend transfer to hepatology service because worsening coagulation and decompensated cirrhosis (2) SBP (spontaneous bacterial peritonitis): Code(s): K65.2 - Spontaneous bacterial peritonitis Status: Acute Assessment and Plan: diagnosed this hospitalization and she is receiving rocephin no more abdominal pain (3) Decompensated hepatic cirrhosis: Code(s): K72.90 - Hepatic failure, unspecified without coma; K74.60 - Unspecified cirrhosis of liver Status: Acute Assessment and Plan: work up in progress meld score 23 mostly due to high inr and bili (normal renal function) 2g na diet, nutritional support recommend transfer to hepatology service in [facility] EGD in near future to assess if portal htn or varices, at this time can not proceed with scopes with high INR (4) Elevated liver enzymes: Code(s): R74.8 - Abnormal levels of other serum enzymes Status: Acute Assessment and Plan: from decompensated cirrhosis (5) Rectal bleeding: Code(s): K62.5 - Hemorrhage of anus and rectum Status: Acute Assessment and Plan: no more bleeding for last 3 days, probably from hemorrhoids but noted more anemia anusol supp at some point will need colonoscopy (6) Thrombocytopenia: Code(s): D69.6 - Thrombocytopenia, unspecified Status: Acute Assessment and Plan: from liver disease, stable (7) Hemorrhoid: Code(s): K64.9 - Unspecified hemorrhoids Status: Acute Assessment and Plan: on anusol supp (8) Right leg pain: Code(s): M79.604 - Pain in right leg Status: Acute Assessment and Plan: will get ultrasound- assess for dvt, hematoma (high inr and drop in h/h) Subjective Date/time seen: 09/05/23 13:25 Interval history: no abdominal pain but today noted pain in Rt thigh, denies GIB Review of Systems Review of Systems: All systems reviewed & are unremarkable except as noted in HPI and below Exam Const: General: comfortable and no acute distress Other: + jaundice HENMT: Face/Nose/Sinus: Normal nares present Eyes: Sclera: scleral abnormality (icteric) Neck: Neck: supple Resp: Auscultation: clear to auscultation bilaterally Cardio: Rate: regular rate Rhythm: regular rhythm GI: Inspection: non-distended GI Palp: Yes Soft to palpation and No Tenderness to palpation present (GI) Auscultation: normal bowel sounds Skin: Other: icteric, few bruises from lab drawn Neuro: Speech: normal speech Motor exam (neuro): 5/5 motor strength present throughout Extrem: Other: pain in Rt thigh Psych: Mental Status: mental status grossly normal Objective Data Vital Signs Vital Signs: Vital Signs - 24 hr 09/04/23 14:00 09/04/23 16:02 09/04/23 21:22 Temperature 98.5 F 98.8 F Pulse Rate 95 89 93 Respiratory Rate 18 16 Blood Pressure 140/77 131/58 L Pulse Oximetry 92 92 Oxygen Delivery 09/04/23 20:00 09/05/23 05:33 09/05/23 08:00 Temperature 98.3 F Pulse Rate 79 71 Respiratory Rate 16 Blood Pressure 132/60 Pulse Oximetry 97 Oxygen Delivery Room Air Intake/Output Intake/Output: Intake & Output 09/02/23 09/03/23 09/04/23 09/05/23 23:59 23:59 23:59 23:59 Intake Total 790 1110 1380 840 Balance 790 1110 1380 840 Meds/Results Medications: Active Medications Generic Name Dose Route Start Last Admin Trade Name Cedricq PRN Reason Stop Dose Admin Furosemide 40 mg 09/01/23 09:00 09/05/23 09:15 Furosemide 40 Mg Tablet PO 40 mg DAILY
[2023-09-05 13:33] LABS: Folic Acid 6.5 ng/mL (2.76->20)
[2023-09-05 14:00] VITALS: BP 124/58; PULSE 86; RESP 18; TEMP 37.1; O2SAT 93
[2023-09-05 20:00] VITALS: PULSE 86; RESP 18; O2SAT 93
[2023-09-05 20:40] VITALS: BP 131/56; PULSE 99; RESP 20; TEMP 37.8; O2SAT 95
[2023-09-05 20:43] LABS: INR 4.4; Prothrombin Time 46.1 Seconds (11.1-14.7)
[2023-09-05 21:10] VITALS: TEMP 36.8
[2023-09-06 05:05] VITALS: BP 132/50; PULSE 98; RESP 18; TEMP 36.8; O2SAT 93
[2023-09-06 06:49] LABS: Prothrombin Time 42.3 Seconds (11.1-14.7)
[2023-09-06] MEDS: LIDOCAINE 5% PATCH 1 PATCH TRANSDERM (09:22)
[2023-09-06] MEDS: HYDROCORTISONE ACETATE 25 MG SUPPOSITORY RECTAL ×2 (09:22→21:11)
[2023-09-06] MEDS: SPIRONOLACTONE 50 MG TABLET PO ×2 (09:23→16:25)
[2023-09-06] MEDS: PANTOPRAZOLE 40 MG TABLET PO (09:23)
[2023-09-06] MEDS: cefTRIAXone 2 GM/NS 100 ML 2 GM/100 ML BAG IVPB (09:23)
[2023-09-06] MEDS: FUROSEMIDE 40 MG TABLET PO (09:23)
--- NOTE | 2023-09-06 09:36 | PM.IMPN ---
Progress Note: A&P Assessment and Plan (1) Cirrhosis of liver: Code(s): K74.60 - Unspecified cirrhosis of liver Status: Acute Assessment and Plan: - GI is following -on Lasix and spironolactone - Will monitor electrolytes and CBC closely - 2g na diet, nutritional support referral to [facility] hepatology division were sent per GI note colonoscopy / EGD postponed - per gi: I recommend transfer to hepatology service because worsening coagulation and decompensated cirrhosis -called [facility] to initiate transfer- DR Azar accepted - awaiting for a bed (2) Hemorrhoid: Code(s): K64.9 - Unspecified hemorrhoids Status: Acute Assessment and Plan: -possible colonoscopy for tuesday- was not done - no more rectal bleeding since started on suppositories (3) SBP (spontaneous bacterial peritonitis): Code(s): K65.2 - Spontaneous bacterial peritonitis Status: Acute Assessment and Plan: -Following with GI treatment with rocephin, tomorrow will give another dose of iv albumin normal renal function but monitor for complications - cetriaxone - will do 7 days course (4) Elevated liver enzymes: Code(s): R74.8 - Abnormal levels of other serum enzymes Status: Acute (5) Rectal bleeding: Code(s): K62.5 - Hemorrhage of anus and rectum Status: Acute Assessment and Plan: -Hg is stable- 10.3 today - pt is a Muslim and does not take any home meds or blood product (6) Coagulopathy: Code(s): D68.9 - Coagulation defect, unspecified Status: Acute Assessment and Plan: - inr is reported today 5.5 - pt received 3 doses of vit k already- cannot take FFP (Jahova's witness) - discussed with DR Martinez- will order more vit K and consult Hematology - GI is following - hematology consulted notes reviewed: anemia- There is a decrease in hemoglobin. Patient is dealing with bleeding hemorrhoids, but likely not the cause of her hemoglobin drop. I will draw iron studies and B12 to re-evaluate. She may need iron infusion vs PO supplements since no blood products can be given. Elevated MCV is due to her liver disease. Elevated INR- INR 5.6 PT 56. Due to liver damage. Pt is on oral Vit K daily. No FFP can be given to due to Jainism status. I have explained the mechanism of FFP and the risks of untreated elevation in INR. Pt and decline blood products. I will give 5mg IV K. I will order q8 hour PT/INR to be drawn (7) Thrombocytopenia: Code(s): D69.6 - Thrombocytopenia, unspecified Status: Acute Assessment and Plan: - was seen per hematology today - notes reviewed: Thrombocytopenia- CT scan shows shows cirrhosis of the liver with associated large amount of abdominopelvic ascites, and small left pleural effusion. She is a Jehovah witness and declines all blood products. Patient platelet today are stable at 63,000. This is due to her ongoing liver cirrhosis and possibility of nutritional deficiencies. I will order plt antibody, iron studies and B12 as hgb continues to drop as well (8) DVT (deep venous thrombosis): Code(s): I82.409 - Acute embolism and thrombosis of unspecified deep veins of unspecified lower extremity Status: Acute Assessment and Plan: General surgery was consulted for IVC filter placement - She agrees to proceed when appropriate. While she is waiting for bed placement at [place], we can try tentatively adding her onto the schedule for placement of IVC filter. Will discuss threshold for INR with Dr. Lizama. If the patient gets transferred to [place] prior to the procedure, then she can have it done at [facility] since this is nonemergent. The patient understands and agrees with this plan. Plan Plan is to continue current treatment monitor electrolytes and CBC. Patient was started on Lasix spironolactone Code status full. posisbel IVC filter here Awaiting for bed at [place] Time Spent Wit
--- NOTE | 2023-09-06 10:02 | PM.CNGS ---
Assessment and Plan Assessment and plan (1) DVT (deep venous thrombosis): Code(s): I82.409 - Acute embolism and thrombosis of unspecified deep veins of unspecified lower extremity Status: Acute Assessment and Plan: Found to have a DVT of the right common femoral vein and proximal to mid femoral vein on venous dopplers yesterday. She is not a candidate for anticoagulation given thrombocytopenia and elevated INR. Hematology has requested IVC filter placement. I discussed the details of the procedure with the patient. Description of the procedure, risks, benefits, alternatives, and expected recovery were discussed in detail. She agrees to proceed when appropriate. While she is waiting for bed placement at [place], we can try tentatively adding her onto the schedule for placement of IVC filter. Will discuss threshold for INR with Dr. Lizama. If the patient gets transferred to [place] prior to the procedure, then she can have it done at [facility] since this is nonemergent. The patient understands and agrees with this plan. (2) Coagulopathy: Code(s): D68.9 - Coagulation defect, unspecified Status: Acute Assessment and Plan: INR still at 4.0 today after receiving vitamin K daily since admission. Vitamin K on hold due to DVT. (3) Thrombocytopenia: Code(s): D69.6 - Thrombocytopenia, unspecified Status: Acute Assessment and Plan: Platelets 63,000 today. Likely related to liver disease. Hematology also following. (4) Decompensated hepatic cirrhosis: Code(s): K72.90 - Hepatic failure, unspecified without coma; K74.60 - Unspecified cirrhosis of liver Status: Acute Assessment and Plan: GI following and recommends transfer to [place] for hepatology. Patient is awaiting bed placement. (5) Ascites: Code(s): R18.8 - Other ascites Status: Acute Assessment and Plan: S/p paracentesis yielding 2900 mL fluid with relief in abdominal discomfort and distention. (6) Rectal bleeding: Code(s): K62.5 - Hemorrhage of anus and rectum Status: Acute Assessment and Plan: Rectal bleeding reportedly from hemorrhoids that resolved following hydrocortisone suppositories. (7) Anemia: Code(s): D64.9 - Anemia, unspecified Status: Acute Assessment and Plan: Hemoglobin around 10 and dropped to 7.4 this morning. Patient is Buddhist. Continue to trend labs. Hematology following and recommends also adding iron infusions. Plan I have discussed the patient's case and plan of care with Dr. Lizama. History of Present Illness Consult details Consult date: 09/06/23 Reason for consult: other (Possible IVC filter placement) Requesting physician: Asher Gentile MD Narrative: This is a 73-year-old with no known past medical history, who is a [employer], who presented to the ER a week ago with complaints of abdominal discomfort and swelling. She reports bloating, nausea, vomiting, shortness of breath and lower extremity edema that developed over the past few weeks. No history of known liver disease, heavy alcohol use, or drug use. Workup showed decompensated cirrhosis with large volume ascites. She was admitted and had a paracentesis with relief of her abdominal discomfort. GI is following and recommends transfer to [place] for hepatology. She also has had rectal bleeding from hemorrhoids, which has resolved after receiving suppositories. She had an incident in the bathroom on the medical floor where she slipped, but did not fall. Her legs twisted ?weird? and she developed worsening swelling in the right lower extremity and groin pain with bruising. Hemoglobin has dropped from 10 to 7.4 this morning. INR was as high as 5.6 and is down to 4.0 today. She has been receiving vitamin K daily since admission. She denies any active bleeding today. Denies any rectal bleeding for the last 2 days. Her platelets have also been low around 60,000. Today her lab
[2023-09-06 14:00] VITALS: BP 117/50; PULSE 97; RESP 18; TEMP 37.1; O2SAT 96
--- NOTE | 2023-09-06 14:45 | WPDGIPROGNO ---
Progress Note: A&P Assessment and Plan (1) Coagulopathy: Code(s): D68.9 - Coagulation defect, unspecified Status: Acute Assessment and Plan: this is from cirrhosis mostly inr down to 4, has been getting IV vit K, can not give FFP (she is Jehova's witness) hematology on board (also thrombocytopenia from liver disease)- unfortunately if she would have bleeding we won't be able to treat it with blood products awaiting bed at [facility] hepatology service because worsening coagulation and decompensated cirrhosis (2) SBP (spontaneous bacterial peritonitis): Code(s): K65.2 - Spontaneous bacterial peritonitis Status: Acute Assessment and Plan: diagnosed this hospitalization and she is on rocephin no more abdominal pain (3) Decompensated hepatic cirrhosis: Code(s): K72.90 - Hepatic failure, unspecified without coma; K74.60 - Unspecified cirrhosis of liver Status: Acute Assessment and Plan: work up in progress high meld score mostly due to high inr and bili (normal renal function) 2g na diet, nutritional support EGD in near future to assess if portal htn or varices, at this time can not proceed with scopes with high INR (4) Elevated liver enzymes: Code(s): R74.8 - Abnormal levels of other serum enzymes Status: Acute Assessment and Plan: from decompensated cirrhosis (5) Rectal bleeding: Code(s): K62.5 - Hemorrhage of anus and rectum Status: Acute Assessment and Plan: no more bleeding for last 4 days, probably from hemorrhoids but noted anemia anusol supp at some point will need colonoscopy (6) Thrombocytopenia: Code(s): D69.6 - Thrombocytopenia, unspecified Status: Acute Assessment and Plan: from liver disease, stable (7) Hemorrhoid: Code(s): K64.9 - Unspecified hemorrhoids Status: Acute Assessment and Plan: on anusol supp (8) Right leg pain: Code(s): M79.604 - Pain in right leg Status: Acute Assessment and Plan: she has DVT- not a candidate for anticoagulation given high INR and also Jehova's witness (she does not accept blood transfusion in case she would have bleeding) may need IVC filter when INR is better Subjective Date/time seen: 09/06/23 14:45 Interval history: diagnosed with DVT Rt leg, pain better today otherwise no new events Review of Systems Review of Systems: All systems reviewed & are unremarkable except as noted in HPI and below Exam Const: General: comfortable and no acute distress Other: + jaundice HENMT: Face/Nose/Sinus: Normal nares present Eyes: Sclera: scleral abnormality (icteric) Neck: Neck: supple Resp: Auscultation: clear to auscultation bilaterally Cardio: Rate: regular rate Rhythm: regular rhythm GI: Inspection: non-distended GI Palp: Yes Soft to palpation and No Tenderness to palpation present (GI) Auscultation: normal bowel sounds Skin: Other: icteric, few bruises from lab drawn Neuro: Speech: normal speech Motor exam (neuro): 5/5 motor strength present throughout Extrem: Other: pain in Rt thigh Psych: Mental Status: mental status grossly normal Objective Data Vital Signs Vital Signs: Vital Signs - 24 hr 09/05/23 20:00 09/05/23 20:40 09/05/23 21:10 Temperature 100.1 F H 98.3 F Pulse Rate 86 99 Respiratory Rate 18 20 Blood Pressure 131/56 L Pulse Oximetry 93 95 Oxygen Delivery Room Air 09/06/23 05:05 09/06/23 14:00 Temperature 98.2 F 98.7 F Pulse Rate 98 97 Respiratory Rate 18 18 Blood Pressure 132/50 L 117/50 L Pulse Oximetry 93 96 Oxygen Delivery Intake/Output Intake/Output: Intake & Output 09/03/23 09/04/23 09/05/23 09/06/23 23:59 23:59 23:59 23:59 Intake Total 1110 1380 1130.5 360 Output Total 350 Balance 1110 1380 1130.5 10 Meds/Results Medications: Active Medications Generic Name Dose Route Start Last Admin Trade Name Freq PRN Reason Stop
[2023-09-06 20:00] VITALS: PULSE 97; RESP 18; O2SAT 96
[2023-09-06 20:12] LABS: INR 4.9; Prothrombin Time 50.2 Seconds (11.1-14.7)
[2023-09-06 20:35] VITALS: BP 98/79; PULSE 109; RESP 20; TEMP 36.6; O2SAT 97
[2023-09-07] VITALS (10 sets, daily range): BP systolic 112–134; BP diastolic 39–74; PULSE 97–103; RESP 16–20; TEMP 36.6–37.3; O2SAT 93–97; BMI 35.1
[2023-09-07 06:27] LABS: Prothrombin Time 94.5 Seconds (11.1-14.7)
[2023-09-07 07:07] LABS: INR 10.6
[2023-09-07] MEDS: LIDOCAINE 5% PATCH 1 PATCH TRANSDERM (08:49)
[2023-09-07] MEDS: cefTRIAXone 2 GM/NS 100 ML 2 GM/100 ML BAG IVPB (08:49)
[2023-09-07] MEDS: PANTOPRAZOLE 40 MG TABLET PO ×2 (08:50→20:15)
[2023-09-07] MEDS: FUROSEMIDE 40 MG TABLET PO (08:50)
[2023-09-07] MEDS: SPIRONOLACTONE 50 MG TABLET PO ×2 (08:50→17:25)
[2023-09-07] MEDS: HYDROCORTISONE ACETATE 25 MG SUPPOSITORY RECTAL (08:50)
[2023-09-07 11:13] LABS: Basophils Percent Auto 0.2 % (0.2-1.2); Eosinophils Absolute Auto 0.2 K/mm3 (0-0.3); Eosinophils Percent Auto 1.3 % (0-4.4); Immature Granulocyte Absolute 0.31 K/mm3 (0.00-0.031); Immature Granulocyte Percent A 2.5 % (0-0.5); Immature Platelet Fraction Pct 8.7 % (0.9-11.2); Lymphocytes Absolute Auto 3.66 K/mm3 (0.9-3.2); Lymphocytes Percent Auto 29.5 % (18.3-44.2); Mean Corpuscular HGB Conc 32.2 g/dl (32-36); Mean Corpuscular Hemoglobin 37.3 pg (26-34); Mean Corpuscular Volume 115.7 fl (80-100); Mean Platelet Volume 11.5 fl (7.4-10.4); Monocytes Absolute Auto 2.2 K/mm3 (0.1-0.6); Monocytes Percent Auto 17.5 % (2.6-8.5); Neutrophils Absolute Auto 6.1 K/mm3 (1.3-6.7); Nucleated Red Blood Cells Perc 1.4 % (0.0-0.2); Platelet Count Result 70 k/mm3 (150-375); Red Blood Count 1.02 M/mm3 (4.2-5.4); Red Cell Distribution Width 18.4 % (11.5-14.5); White Blood Count 12.4 K/mm3 (4.5-10.0)
[2023-09-07 11:39] LABS: Hematocrit 11.8 % (37.0-47.0); Hemoglobin 3.8 g/dL (12.0-15.0)
[2023-09-07] MEDS: PHYTONADIONE 5 MG TABLET PO ×3 (11:40→23:08)
[2023-09-07 11:41] LABS: Hypochromasia 1+; Platelet Estimate Decreased (Adequate); Schistocytes None Seen
[2023-09-07 11:43] LABS: Alanine Aminotransferase 19 U/L (6-35); Albumin Level 2.4 g/dL (3.5-5.1); Alkaline Phosphatase 60 U/L (38-126); Anion Gap 7 mmol/L (4-12); Aspartate Amino Transferase 60 U/L (14-36); Bilirubin,Total 6.1 mg/dL (0.2-1.3); Blood Urea Nitrogen 21 mg/dL (7-17); Calcium 8.5 mg/dL (8.4-10.2); Carbon Dioxide 27 mmol/L (22-30); Chloride 102 mmol/L (98-107); Estimated CRCL calculation 85 ml/min; Estimated Glomerular Filt Rate > 60; Glucose 107 mg/dL (65-110); Potassium 3.3 mmol/L (3.4-5.0); Sodium 136 mmol/L (137-145)
[2023-09-07 12:39] LABS: Hemoglobin 3.7 g/dL (12.0-15.0)
[2023-09-07 12:40] LABS: Hematocrit 11.6 % (37.0-47.0)
[2023-09-07 13:03] LABS: Albumin Peritoneal Fluid 0.5 g/dL; Amylase Peritoneal Fluid 11 U/L
[2023-09-07 13:08] LABS: Actin Antibody (IgG) <20 U (<20)
--- NOTE | 2023-09-07 13:29 | PC.NURSE ---
This patient, Magaly Cedeno, was received from [[id number] ] on 09/07/23 at 1329. Patient/family oriented to unit policies and routines
--- NOTE | 2023-09-07 13:36 | PC.NURSE ---
Patient transfered via bed to room 201
--- NOTE | 2023-09-07 14:21 | PM.IMPN ---
Progress Note: A&P Assessment and Plan (1) Cirrhosis of liver: Code(s): K74.60 - Unspecified cirrhosis of liver Status: Acute Assessment and Plan: - GI is following -on Lasix and spironolactone - Will monitor electrolytes and CBC closely - 2g na diet, nutritional support referral to [facility] hepatology division were sent per GI note colonoscopy / EGD postponed - per gi: I recommend transfer to hepatology service because worsening coagulation INR 10, hb is 3 - [facility] bed or [facility] bed awating (2) Hemorrhoid: Code(s): K64.9 - Unspecified hemorrhoids Status: Acute Assessment and Plan: -possible colonoscopy for tuesday- was not done - no more rectal bleeding since started on suppositories - bleeding stopped (3) SBP (spontaneous bacterial peritonitis): Code(s): K65.2 - Spontaneous bacterial peritonitis Status: Acute Assessment and Plan: -Following with GI treatment with rocephin, tomorrow will give another dose of iv albumin normal renal function but monitor for complications - iv cetriaxone - will do 7 days course - ascitic cultures are negative (4) Elevated liver enzymes: Code(s): R74.8 - Abnormal levels of other serum enzymes Status: Acute Assessment and Plan: continue tomonitor LFTS (5) Rectal bleeding: Code(s): K62.5 - Hemorrhage of anus and rectum Status: Acute Assessment and Plan: -HB is 3 venofer, eogen, b12 and folic acid orderd - pt is a Yarsanism and does not take any home meds or blood product (6) Coagulopathy: Code(s): D68.9 - Coagulation defect, unspecified Status: Acute Assessment and Plan: - inr is reported today 5.5 - pt received 3 doses of vit k already- cannot take FFP (Jahova's witness) - discussed with DR Martinez- will order more vit K and consult Hematology - GI is following - hematology consulted notes reviewed: anemia- There is a decrease in hemoglobin. Patient is dealing with bleeding hemorrhoids, but likely not the cause of her hemoglobin drop. I will draw iron studies and B12 to re-evaluate. She may need iron infusion vs PO supplements since no blood products can be given. Elevated MCV is due to her liver disease. Elevated INR- INR 5.6 PT 56. Due to liver damage. Pt is on oral Vit K daily. No FFP can be given to due to Christianity status. I have explained the mechanism of FFP and the risks of untreated elevation in INR. Pt and decline blood products. I will give 5mg IV K. I will order q8 hour PT/INR to be drawn (7) Thrombocytopenia: Code(s): D69.6 - Thrombocytopenia, unspecified Status: Acute Assessment and Plan: - was seen per hematology today - notes reviewed: Thrombocytopenia- CT scan shows shows cirrhosis of the liver with associated large amount of abdominopelvic ascites, and small left pleural effusion. She is a Jehovah witness and declines all blood products. Patient platelet today are stable at 63,000. This is due to her ongoing liver cirrhosis and possibility of nutritional deficiencies. I will order plt antibody, iron studies and B12 as hgb continues to drop as well (8) DVT (deep venous thrombosis): Code(s): I82.409 - Acute embolism and thrombosis of unspecified deep veins of unspecified lower extremity Status: Acute Assessment and Plan: General surgery was consulted for IVC filter placement -Surgery will not be able to do procedure with such high INRs Subjective Date/time seen: 09/07/23 14:21 Interval history: 73-year-old female with no PMH admitted for abdominal discomfort. Patient says since late July she felt like she has been having abdominal bloating, intermittent nausea/vomiting, and newer onset lower extremity edema.? She denies noticing her coloration changes. Patient reports she was having trouble urinating and having bowel movements due to the swelling in her abdomen.? She tried homeopathic wate
--- NOTE | 2023-09-07 14:34 | WPDGIPROGNO ---
Progress Note: A&P Assessment and Plan (1) Coagulopathy: Code(s): D68.9 - Coagulation defect, unspecified Status: Acute Assessment and Plan: this is from cirrhosis mostly inr up to 10 despite vit K, patient is Jehova's witness and can not get blood product hematology on board (also thrombocytopenia from liver disease)- unfortunately if she would have bleeding we won't be able to treat it with blood products noted worsening anemia with acute drop h/h and more coagulopathy, still waiting bed at [facility] hepatology service, will get update (2) Acute blood loss anemia: Code(s): D62 - Acute posthemorrhagic anemia Status: Acute Assessment and Plan: several days ago had rectal bleeding but none since noted large bruise in Rt thigh (also visualized in recent doppler ultrasound) she can not get blood products just received Epogen, hematology on board (3) SBP (spontaneous bacterial peritonitis): Code(s): K65.2 - Spontaneous bacterial peritonitis Status: Acute Assessment and Plan: diagnosed this hospitalization, completed treatment with rocephin no more abdominal pain (4) Decompensated hepatic cirrhosis: Code(s): K72.90 - Hepatic failure, unspecified without coma; K74.60 - Unspecified cirrhosis of liver Status: Acute Assessment and Plan: work up in progress high meld score mostly due to high inr and bili (normal renal function) 2g na diet, nutritional support EGD in near future to assess if portal htn or varices, at this time can not proceed with scopes with high INR (5) Elevated liver enzymes: Code(s): R74.8 - Abnormal levels of other serum enzymes Status: Acute Assessment and Plan: from decompensated cirrhosis (6) Rectal bleeding: Code(s): K62.5 - Hemorrhage of anus and rectum Status: Acute Assessment and Plan: no more bleeding for last 5 days, probably from hemorrhoids but noted anemia anusol supp at some point will need colonoscopy (7) Thrombocytopenia: Code(s): D69.6 - Thrombocytopenia, unspecified Status: Acute Assessment and Plan: from liver disease, stable (8) Hemorrhoid: Code(s): K64.9 - Unspecified hemorrhoids Status: Acute Assessment and Plan: on anusol supp (9) Right leg pain: Code(s): M79.604 - Pain in right leg Status: Acute Assessment and Plan: she has DVT- not a candidate for anticoagulation given high INR and also Jehova's witness (she does not accept blood transfusion in case she would have bleeding) may need IVC filter when INR is better also hematoma in area Subjective Date/time seen: 09/07/23 14:34 Interval history: rt thigh more swollen with noticeable bruise and more tender noted higher inr with drop hgb, denies any GIB Review of Systems Review of Systems: All systems reviewed & are unremarkable except as noted in HPI and below Exam Const: General: comfortable and no acute distress Other: + jaundice chronically ill appeating HENMT: Face/Nose/Sinus: Normal nares present Eyes: Sclera: scleral abnormality (icteric) Neck: Neck: supple Resp: Auscultation: clear to auscultation bilaterally Cardio: Rate: regular rate Rhythm: regular rhythm GI: Inspection: non-distended GI Palp: Yes Soft to palpation and No Tenderness to palpation present (GI) Auscultation: normal bowel sounds Skin: Other: icteric, few bruises in arm Neuro: Speech: normal speech Motor exam (neuro): 5/5 motor strength present throughout Extrem: Other: pain in Rt thigh with bruising/hematoma Psych: Mental Status: mental status grossly normal Objective Data Vital Signs Vital Signs: Vital Signs - 24 hr 09/06/23 20:00 09/06/23 20:35 09/07/23 04:55 Temperature 97.9 F 97.8 F Pulse Rate 97 109 H 98 Respiratory Rate 18 20 20 Blood Pressure 98/79 L 112/44 L Pulse Oximetry 96 97 97 Oxygen Delivery Room Air 09/07/23 08
[2023-09-07 14:49] LABS: LDH Peritoneal Fluid 794 U/L (<63)
[2023-09-07] MEDS: CYANOCOBALAMIN INJ 1,000 MCG/ML VIAL 1000 MCG IM (14:58)
[2023-09-07] MEDS: THIAMINE HCL 200 MG/2 ML VIAL 100 MG IV PUSH (14:58)
[2023-09-07] MEDS: EPOETIN ALFA 20,000 UNITS/ML VIAL 20000 UNITS IV PUSH (14:59)
[2023-09-07] MEDS: IRON SUCROSE COMPLEX 500 MG in SODIUM CHLORIDE 0.9% IV 250 ML 78.57 MG IVPB (14:59)
[2023-09-07 17:02] LABS: Prothrombin Time > 120.0 Seconds (11.1-14.7)
[2023-09-07 17:04] LABS: INR > 20.0
[2023-09-07] MEDS: POTASSIUM CHLORIDE 20 MEQ ER TABLET 40 MEQ PO (17:25)
--- NOTE | 2023-09-07 17:34 | PM.IMPN ---
Subjective Date/time seen: 09/07/23 17:34 Interval history: Pt is in a critically situation labs are worsening state INR is now 20 vit K ordered D/w DR Gentile plan to do every 6 hourly INR checks and vit K dosing Pt is a Jehovah witness does not accepted FFP or PRBC Pt is DNR code status Pt possibly bleeding order CT Chest abdo pelvis stat Objective Data Vital Signs Vital Signs: Vital Signs - 24 hr 09/06/23 20:00 09/06/23 20:35 09/07/23 04:55 Temperature 36.6 C 36.6 C Pulse Rate 97 109 H 98 Respiratory Rate 18 20 20 Blood Pressure 98/79 L 112/44 L Pulse Oximetry 96 97 97 Oxygen Delivery Room Air 09/07/23 08:45 09/07/23 11:56 09/07/23 13:30 Temperature Pulse Rate Respiratory Rate Blood Pressure 132/74 123/60 Pulse Oximetry Oxygen Delivery Room Air 09/07/23 14:00 09/07/23 15:55 09/07/23 16:00 Temperature 37.3 C Pulse Rate 97 99 Respiratory Rate Blood Pressure 134/41 L Pulse Oximetry 97 Oxygen Delivery Room Air 09/07/23 16:00 Temperature Pulse Rate 99 Respiratory Rate Blood Pressure Pulse Oximetry Oxygen Delivery Intake/Output Intake/Output: Intake & Output 09/04/23 09/05/23 09/06/23 09/07/23 23:59 23:59 23:59 23:59 Intake Total 1380 1130.5 610 916 Output Total 350 1 Balance 1380 1130.5 260 915 Meds/Results Medications: Active Medications Generic Name Dose Route Start Last Admin Trade Name Freq PRN Reason Stop Dose Admin Epoetin Ahmet-epbx 20,000 units 09/08/23 09:00 Epoetin Ahmet-Epbx 20,000 Units/Ml Vial IV PUSH 09/09/23 09:01 QAM LAKE Furosemide 40 mg 09/01/23 09:00 09/07/23 08:50 Furosemide 40 Mg Tablet PO 40 mg DAILY LAKE Administration Hydrocortisone Acetate 25 mg 09/02/23 21:00 09/07/23 08:50 Hydrocortisone Acetate 25 Mg Suppository RECTAL 25 mg Q12HR LAKE Administration Iron Sucrose 500 mg/ Sodium 275 mls @ 78.571 mls/hr 09/07/23 12:50 09/07/23 14:59 Chloride IVPB 78.57 mls/hr DAILY LAKE Administration Lidocaine 1 patch 09/05/23 09:00 09/07/23 08:49 Lidocaine 5% Patch TRANSDERM 1 patch DAILY LAKE Administration Pantoprazole Sodium 40 mg 09/07/23 21:00 Pantoprazole 40 Mg Tablet PO Q12HR LAKE Phytonadione 5 mg 09/07/23 17:32 Phytonadione 5 Mg Tablet PO 09/07/23 17:33 ONCE ONE Spironolactone 50 mg 09/02/23 17:00 09/07/23 17:25 Spironolactone 50 Mg Tablet PO 50 mg BID LAKE Administration Thiamine HCl 100 mg 09/07/23 14:05 09/07/23 14:58 Thiamine Hcl 200 Mg/2 Ml Vial IV PUSH 09/09/23 09:01 100 mg QAM LAKE Administration Radiology Results: ITS Impressions Abdomen/Pelvis CT 08/31/23 05:59 Impression: Cirrhosis of the liver with associated large amount of abdominopelvic ascites. Small left pleural effusion. Paracentesis Ultrasound 08/31/23 16:05 IMPRESSION: 1. Successful ultrasound-guided paracentesis yielding 2900 mL of tomi-colored fluid. Venous Doppler Study 09/05/23 15:01 IMPRESSION: 1. Nonocclusive deep venous thrombosis in the right common femoral vein and proximal to mid femoral vein. 2. Mixed hypoechoic and anechoic lesion at the medial right thigh with appearance suggesting a distal muscle or tendon tear with proximal retraction and small hematoma at the tear defect. Evaluation is relatively limited with ultrasound and could consider MRI for further evaluation as clinically indicated. Labs Labs: Laboratory Results - last 24 hr 08/31/23 09/01/23 09/06/23 15:15 06:37 19:41 WBC RBC Hgb Hct MCV MCH MCHC RDW Plt Count MPV Immature Gran % (Auto) Neut % (Auto) Lymph % (Auto) Cherry % (Auto) Eos % (Auto) Baso % (Auto) Lymph # (Auto) Cherry # (Auto) Eos # (Auto) Baso # (Auto) Abs Immat Gran (auto) Absolute Neuts (auto) Absolute Nucleated RBC Nucleated RBC % Platelet Estimate % Immature P
[2023-09-07 21:17] LABS: Immature Platelet Fraction Pct 7.6 % (0.9-11.2); Mean Corpuscular HGB Conc 31.7 g/dl (32-36); Mean Corpuscular Hemoglobin 37.5 pg (26-34); Mean Corpuscular Volume 118.2 fl (80-100); Mean Platelet Volume 10.9 fl (7.4-10.4); Platelet Count Result 61 k/mm3 (150-375); Red Blood Count 0.88 M/mm3 (4.2-5.4); Red Cell Distribution Width 20.5 % (11.5-14.5)
[2023-09-07 21:20] LABS: Hematocrit 10.4 % (37.0-47.0); Hemoglobin 3.3 g/dL (12.0-15.0)
[2023-09-07 21:50] LABS: Prothrombin Time > 120.0 Seconds (11.1-14.7)
[2023-09-07 21:51] LABS: INR > 20.0
[2023-09-08] VITALS (10 sets, daily range): BP systolic 89–126; BP diastolic 47–85; PULSE 92–106; RESP 16–30; TEMP 36.2–36.6; O2SAT 92–96
--- NOTE | 2023-09-08 01:39 | PC.NURSE ---
[facility] transfer center called for pt update. States there is still a waitlist for [facility] ICU.
[2023-09-08] MEDS: traMADol HCL (*CRX) 50 MG TABLET PO (01:53)
[2023-09-08] MEDS: ONDANSETRON INJ 4 MG/2 ML VIAL IV PUSH (01:54)
--- NOTE | 2023-09-08 03:31 | PC.NURSE ---
[facility] transfer center called for pt update. States that [facility] is currently at capacity, but they will call for an update once a shift.
--- NOTE | 2023-09-08 04:14 | PC.NURSE ---
Pt complaining of bladder pressure. Unable to void at this time. Bladder scan reads 87 mls in bladder. Pt c/o new onset low back pain. States pain is 11/01. Notified Dr. Cornell. New orders for pain medication obtained. Pt has stated throughout the night that she does not want her family called. States that her will not take it well and not to call him until you have to.
[2023-09-08] MEDS: HYDROmorphone HCL INJ (*CRX) 1 MG/ML SYR IV PUSH (04:22)
[2023-09-08 04:58] LABS: LKM 1 Antibody <=20.0 U (<=20.0)
[2023-09-08 05:09] LABS: Alanine Aminotransferase 20 U/L (6-35); Albumin Level 2.5 g/dL (3.5-5.1); Alkaline Phosphatase 63 U/L (38-126); Anion Gap 14 mmol/L (4-12); Aspartate Amino Transferase 73 U/L (14-36); Bilirubin,Total 7.2 mg/dL (0.2-1.3); Blood Urea Nitrogen 31 mg/dL (7-17); Calcium 8.4 mg/dL (8.4-10.2); Carbon Dioxide 18 mmol/L (22-30); Chloride 101 mmol/L (98-107); Estimated CRCL calculation 53 ml/min; Estimated Glomerular Filt Rate 55; Glucose 136 mg/dL (65-110); Potassium 3.9 mmol/L (3.4-5.0); Sodium 133 mmol/L (137-145)
[2023-09-08 05:47] LABS: Prothrombin Time > 120.0 Seconds (11.1-14.7)
[2023-09-08 05:48] LABS: INR > 20.0
[2023-09-08 05:58] LABS: Basophils Percent Auto 0.1 % (0.2-1.2); Eosinophils Absolute Auto 0.1 K/mm3 (0-0.3); Eosinophils Percent Auto 0.5 % (0-4.4); Immature Granulocyte Absolute 1.53 K/mm3 (0.00-0.031); Immature Granulocyte Percent A 6.9 % (0-0.5); Lymphocytes Percent Auto 22.8 % (18.3-44.2); Mean Corpuscular HGB Conc 30.7 g/dl (32-36); Mean Corpuscular Hemoglobin 37.3 pg (26-34); Mean Corpuscular Volume 121.7 fl (80-100); Mean Platelet Volume 10.9 fl (7.4-10.4); Monocytes Absolute Auto 3.3 K/mm3 (0.1-0.6); Monocytes Percent Auto 14.9 % (2.6-8.5); Neutrophils Absolute Auto 12.2 K/mm3 (1.3-6.7); Neutrophils Percent Auto 54.8 % (45.5-73.1); Nucleated Red Blood Cells Perc 9.4 % (0.0-0.2); Platelet Count Result 47 k/mm3 (150-375); Red Blood Count 0.83 M/mm3 (4.2-5.4); Red Cell Distribution Width 22.5 % (11.5-14.5); White Blood Count 22.3 K/mm3 (4.5-10.0)
[2023-09-08 06:01] LABS: Hematocrit 10.1 % (37.0-47.0); Hemoglobin 3.1 g/dL (12.0-15.0)
[2023-09-08 06:07] LABS: Hypochromasia 1+; Microcytosis 1+ (NORMAL); Platelet Estimate Decreased (Adequate); Schistocytes None Seen
[2023-09-08] MEDS: PHYTONADIONE 5 MG TABLET PO (06:13)
[2023-09-08] MEDS: THIAMINE HCL 200 MG/2 ML VIAL 100 MG IV PUSH (09:52)
[2023-09-08] MEDS: IRON SUCROSE COMPLEX 500 MG in SODIUM CHLORIDE 0.9% IV 250 ML 78.6 MG IVPB (10:30)
[2023-09-08] MEDS: EPOETIN ALFA-EPBX 20,000 UNITS/ML VIAL 20000 UNITS IV PUSH (10:30)
--- NOTE | 2023-09-08 11:27 | PC.NURSE ---
Dr. Iniguez notified of BP of . No new orders
--- NOTE | 2023-09-08 11:37 | PM.IMPN ---
Progress Note: A&P Assessment and Plan (1) Cirrhosis of liver: Code(s): K74.60 - Unspecified cirrhosis of liver Status: Acute Assessment and Plan: late presentation pt usually does not go to doctors - U bed or [facility] bed awating (2) Hemorrhoid: Code(s): K64.9 - Unspecified hemorrhoids Status: Acute Assessment and Plan: -possible colonoscopy for tuesday- was not done - no more rectal bleeding since started on suppositories - bleeding stopped pt had hb of [address] ordered head, chest abdo and pelvis bleeding found in adductor muscles hematoma k centra ordered and albumin ordered (3) SBP (spontaneous bacterial peritonitis): Code(s): K65.2 - Spontaneous bacterial peritonitis Status: Acute Assessment and Plan: pt is on iv rocephin - iv cetriaxone - will do 7 days course - ascitic cultures are negative (4) Elevated liver enzymes: Code(s): R74.8 - Abnormal levels of other serum enzymes Status: Acute Assessment and Plan: c (5) Rectal bleeding: Code(s): K62.5 - Hemorrhage of anus and rectum Status: Acute Assessment and Plan: -HB is 3 venofer, eogen, b12 and folic acid orderd - pt is a Uats[employer] and does not take any home meds or blood product refusing blood of FFP (6) Coagulopathy: Code(s): D68.9 - Coagulation defect, unspecified Status: Acute Assessment and Plan: - inr is reported today 20 today - GI is following - hematology consulted Elevated INR- Due to liver damage. Pt is on oral Vit K daily. No FFP can be given to due to Confucianism status. I have explained the mechanism of FFP and the risks of untreated elevation in INR. Pt and decline blood products. Pt is on vit k regular dosing q6 hours and kcentra and albumin BP is dropping slowly pt is slow become unstable pt is DNR status family aware of poor prognosis (7) Thrombocytopenia: Code(s): D69.6 - Thrombocytopenia, unspecified Status: Acute Assessment and Plan: hematology and GI aware o the case (8) DVT (deep venous thrombosis): Code(s): I82.409 - Acute embolism and thrombosis of unspecified deep veins of unspecified lower extremity Status: Acute Assessment and Plan: General surgery was consulted for IVC filter placement -Surgery will not be able to do procedure with such high INRs Subjective Date/time seen: 09/08/23 11:37 Interval history: Pt is in a critically situation labs are worsening state INR is now 20 vit K ordered D/w DR Gentile plan to do every 6 hourly INR checks and vit K dosing Pt is a Jehovah witness does not accepted FFP or PRBC Pt is DNR code status Pt possibly bleeding order CT Chest abdo pelvis stat yesterday CT shows hematoma in right hip adductor muscles INR remains high this morning 20 HB remains low at 3 Vit k regularly, K centra ordered, Venofer and Epogen ordered No accepting facility yet [facility] and [facility] aware of pt Prognosis is poor family aware Bp has dropped at 1130am plan albumin and K centra Review of Systems Review of Systems: Pt is heavily jaundiced and pale, poor prognosis Exam Narrative: GEN: tired and weak, pale chronically ill and jaundiced lady vitals unstable RESPIRATORY: Lungs slightly diminished at bases, otherwise clear CARDIOVASCULAR: RRR, +2 pitting edema lower extremities ABDOMINAL: abdomen is soft, mildly distended, non-tender, without guarding or rebound MUSCULOSKELETAL: No obvious deformities, normal ROM. Edema improved. NEURO: Alert and oriented x4. No focal deficits. SKIN:: Warm, dry. Jaundiced appearance. PSYCHIATRIC: Normal affect, pleasant and cooperative Objective Data Vital Signs Vital Signs: Vital Signs - 24 hr 09/07/23 11:56 09/07/23 13:30 09/07/23 14:00 Temperature Pulse Rate 97 Respiratory Rate Blood Pressure 123/60 Pulse Oxim
--- NOTE | 2023-09-08 12:05 | PC.NURSE ---
Dr. Iniguez at bedside updating family on change in patient's condition. Dr. Iniguez aware of change in neuro status as well as deteriorating condition.
[2023-09-08 12:24] LABS: Mean Corpuscular HGB Conc 28.8 g/dl (32-36); Mean Corpuscular Volume 135.1 fl (80-100); Mean Platelet Volume 10.8 fl (7.4-10.4); Platelet Count Result 52 k/mm3 (150-375); Red Blood Count 0.77 M/mm3 (4.2-5.4); White Blood Count 38.2 K/mm3 (4.5-10.0)
[2023-09-08] MEDS: HUMAN PROTHROMBIN COMPLEX(PCC) 5,000 UNITS in PREMIXIV 0 ML 504 UNITS IV CONT (12:24)
[2023-09-08 12:29] LABS: Magnesium 2.2 mg/dL (1.6-2.3)
[2023-09-08 12:36] LABS: Hematocrit 10.4 % (37.0-47.0)
[2023-09-08 12:45] LABS: Prothrombin Time > 120.0 Seconds (11.1-14.7)
[2023-09-08 12:46] LABS: INR > 20.0; Partial Thromboplastin Time > 200.0 Seconds (22.3-36.8)
[2023-09-08] MEDS: ALBUMIN HUMAN 25% 25 GM/100 ML 100 ML IVPB (12:46)
[2023-09-08 12:59] LABS: Fibrinogen 70 mg/dl (215-510)
[2023-09-08 13:00] LABS: D Dimer > 20.00 ug/mL (<0.48)
--- NOTE | 2023-09-08 17:28 | P.DN_ITS ---
Discharge Summary Date and Time Date of : 09/08/23 Time of : 13:08 Provider Pronounced By: Dr. Martinez Probable Cause of Probable Cause of : Cirrhosis of liver Severe anemia Hematoma in adductor muscle Unspecified hemorrhoids Spontaneous bacterial peritonitis Elevated liver enzymes Coagulopathy Elevated INR DVT (deep venous thrombosis) ? ? Summary Hospital Course: Pt with decompensated liver cirrhosis, coagulopathy, Severe anemia, dvt, SBP See details below , CT scan shows -?Cirrhosis of the liver with associated large amount of abdominopelvic ascites. Pt denies alcholol or any drug use only homeopathic meds at home Chronic liver panel is pending Daily LFTS are being monitored Pt having DVT in R leg Pts labs are abnl today hb 3 INR 10 Surgery unable to do filter as INR is? too high Pt receiving venofer epogen b12 and folic acid Pt awaiting transfer to higher level of care Liver unit Pt receiving IV [place] [id number] today ascitic cultures ar negative BC not drawn [facility] aware [facility] aware awaiting bed Pt wishes to be DNR contacted realizes her condition is serious Rectal bleeding stopped with steroid enema hb still very low at 3 no active rectal bleeding today GI and oncology on board advising transfer Unfortunately Pt is in a critically situation today labs are worsening state INR is now 20 vit K ordered D/w DR Gentile plan to do every 6 hourly INR checks and vit K dosing Pt is a Jehovah witness does not accepted FFP or PRBC Pt is DNR code status Pt possibly bleeding order CT Chest abdo pelvis stat yesterday CT shows?hematoma in right hip adductor muscles INR remains high this morning 20 HB remains low at 3 Vit k regularly, K centra ordered, Venofer and Epogen ordered No accepting facility yet [facility] and [facility] aware of pt pt has become unstable with low blood pressures Prognosis is poor family aware Bp has dropped at 1130am plan albumin and K centra? Pt is dnr pt Bp and HR kept falling Unfortunately pt passed at 1334 Additional Data Confirmation of as documented by pronouncing clinician: Pupillary Reflex, Palpable Pulses, Response to Stimuli, Heart Tones and Breath Sounds Name of Provider Notified: Dr. Martinez Time Provider Notified: 13:08 Provider Requests Autopsy: No Family Requests Autopsy: No Director Of Advertising Sales Notified: Yes Date [facility] Notified of : 09/08/23 Time [facility] Notified of : 13:34
[2023-09-08 21:48] LABS: Heparin Induced Platelet Antib Negative (Negative)
[2023-09-09 11:43] LABS: Methylmalonic Acid 102 nmol/L (87-318)
[2023-09-13 15:37] LABS: Soluble Transferrin Receptor 0.78 mg/L (0.76-1.76)
[2023-09-13 16:23] LABS: Platelet Antibody, Direct NEGATIVE (NEGATIVE)
[2023-09-16 10:43] LABS: Total Protein Peritoneal Fluid <3.0 g/dL
[2023-09-19 00:18] LABS: Mitochondrial (M2) Ab (IgG) <20.0 U
== END 2023-09-08 13:08 | disposition expired | DRG 432 ==
LOC: ANHED 07:03 → ANH3MEDSUR 07:42 → ANHIMU 07:57 → ANH3MEDSUR 08:45 → ANHIMU 09-07 13:34
PROVIDERS: Internal Medicine; Internal Medicine Gastroenterology; Internal Medicine Hematology & Oncology; Nurse Practitioner; Nurse Practitioner Family; Admitting Provider Internal Medicine; Emergency Provider Emergency Medicine; Visit Provider Family Medicine
DX: K74.60 Unspecified cirrhosis of liver (principal); K65.2 Spontaneous bacterial peritonitis; J90 Pleural effusion, not elsewhere classified; D68.9 Coagulation defect, unspecified; I82.411 Acute embolism and thrombosis of right femoral vein; D62 Acute posthemorrhagic anemia; D69.59 Other secondary thrombocytopenia; K64.9 Unspecified hemorrhoids; M79.81 Nontraumatic hematoma of soft tissue; Z66 Do not resuscitate; Z53.1 Procedure and treatment not carried out because of patient's decision for reasons of belief and group pressure
CPT/HCPCS: 36415; 49083; 70450; 71250; 74176; 74177; 80053; 80074; 81001; 81256; 82040; 82042; 82104; 82150; 82390; 82607; 82728; 82746; 82945; 83520; 83540; 83550; 83615; 83690; 83735; 83880; 83921; 84157; 84238; 84484; 85014; 85018; 85025; 85027; 85055; 85380; 85384; 85610; 85730; 86022; 86023; 86364; 86376; 87070; 87075; 87205; 88108; 88305; 89051; 93005; 93971; 99285; A9270; J0696; J1170; J1756; J2405; J3411; J3420; J3430; J7050; J7168; P9047; Q4081; Q5106; Q9967